=== PATIENT | male | born 1955 | race Caucasian/White ===

== ENCOUNTER 2020-10-19 11:48 | Inpatient (IN) | payer BC, OTHER ==
--- OUTSIDE RECORDS SUMMARY | 2020-10-19 11:54 | XMS REPORT | Continuity of Care Document ---
:1955 Author Organization [facility] t Address [address] [place] [address] [place] [address] Care Team Providers Name Role Phone DR IESHA Attending Clinician Unavailable DR IESHA Admitting Clinician Unavailable Problems This patient has no known problems. Allergies, Adverse Reactions, Alerts This patient has no known allergies or adverse reactions. Medications This patient has no known medications. Procedures This patient has no known procedures. Encounters Start End Encounter Admission Attending Care Care Encounter Source Date/Time Date/Time Type Type Clinicians Facility Department ID 2020-09-28 2020-10-11 Inpatient C [facility] TELE [id number] [id number] [facility] 18:08:00 19:01:00 [facility] Results Test Description Test Time Test Comments Results Result Comments Source STOOL CULTURE (GI) 2020-10-12 08:41:00 Test Item Value Reference Range Interpretation Comme nts Culture Observations (test code = COB1) NO NORMAL ENTERIC DANIEL Isolate 1 (test code = ISO1) Bella albicans A XR CHEST 1 VIEW PORTABLE *WW*2020-10-11 18:18:09 [facility] 1955 Sex: MExam: AP chestLocation: H 12History: Pleural effusionComparison: 10/03/2020.Findings:A right arm PICC line in place, the tip is in the right atrium. Infiltration is seen in the right upper and right lowerlung along with a moderate-sized right pleural effusion. Some atelectasis is present in the left lung base. The pulmonary vasculature is normal. The heart size is enlarged. Atherosclerosis involves theaorta. The mediastinal silhouette is unremarkable. The bony thorax is intact with degenerative changes noted.Impression:Moderate right pleural effusion and multifocal right pneumonia.Electronically signed by: Jim Yanes MD 10/11/2020 6:18 PM CDT WITH MORPHOLOGY *WW*2020-10-11 06:33:00 Test Item Value Reference Range Interpretation Comments WBC (test code = WBC) 11.6 10\S\3/uL 4.5-11.0 H RBC (test code = RBC) 3.12 10\S\6/uL 4.20-5.60 L HGB (test code = HBG) 8.4 g/dL 14.0-18.0 L HCT (test code = HCT) 27.0 % 35.0-46.0 L MCV (test code = MCV) 86.5 fL 80.0-94.0 MCH (test code = MCH) 26.9 pg 27.0-31.0 L MCHC (test code = MCHC) 31.1 g/dL 32.0-36.0 L RDW (test code = RDW) 27.3 % 11.5-14.5 H PLT (test code = PLT) 67 10\S\3/uL 130-400 L MPV (test code = MPV) 10.0 fL 9.4-12.4 NEUTROP # (test code = NE#) 10.5 10\S\3/uL 2.0-8.0 H LYMPH # (test code = LY#) 0.2 10\S\3/uL 1.2-4.0 L MONOCYTE # (test code = 0.8 10\S\3/uL 0.0-1.1 MO#) EOSINOPH # (test code = 0.0 10\S\3/uL 0.0-0.7 EO#) BASOPHIL # (test code = 0.0 10\S\3/uL 0.0-0.3 BA#) IG # (test code = IG#) 0.06 10\S\3/uL 0.00-0.06 NRBC # (test code = NRBC#) 0.00 10\S\3/uL 0.00-0.01 NEUTROPH % (test code = 90.7 % 35.0-73.0 H NE%) LYMPH % (test code = LY%) 1.9 % 20.0-55.0 L MONO % (test code = MO%) 6.8 % 2.5-10.0 EOSINOPH % (test code = 0.0 % 0.0-5.0 EO%) BASOPHIL % (test code = 0.1 % 0.0-2.0 BA%) IG % (test code = IG%) 0.5 % 0.0-0.8 NRBC% (test code = NRBC%) 0.0 % 0.0-0.2 PLT EST (test code = DECREASED ADEQUATE A PLTEST) PLT MORPH (test code = NORMAL (1.5-3 um) NORMAL PLTMOR) ANISO (test code = ANISO) 4+ NONE A POIK (test code = POIK) 1+ NONE A TARGET (test code = TARG) 1+ NONE A OVALOCYTES (test code = 1+ NONE A OVA) TEAR DROP (test code = TD) 1+ NONE A COMPREHENSIVE METABOLIC ELLISON *WW*2020-10-11 04:57:00 Test Item Value Reference Range Interpretation Comments GLUCOSE (test code 124 mg/dL 75-100 H = 06D) SODIUM (test code 140 mmol/L 136-145 = 01A) POTASSIUM (test 3.9 mmol/L 3.6-5.1 code = 01B) CHLORIDE (test 111 mmol/L 98-107 H code = 04A) CO2 (test code = 20 mmol/L 22-32 L 02A) ANION GAP (test 12.9 mmol/L code = ANG) BUN (test code = 79 mg/dL 7-18 H 05D) CREATININE (test 1.5 mg/dL 0.7-1.3 H code = 03E) GFR (test code = 49 See_Comment L [Automated GFR) mL/min/1.73m\S\2 message] Th e system which generated this result transmit kaleb reference range : >=90. The reference range was not used to interpret this result as normal/abnormal . GFR 57 See_Comment L [Automated CENTRAL AFRICAN (test mL/min/1.73m\S\2 message] The code = GFRAA) system which generated this result transmit kaleb reference range : >=90. The reference range was not used to interpret this result as normal/abnormal . EGFR (test code = eGFR BY EGFR) CKD-EPI CALCULATION IS NOT RECOMMENDED FOR PATIENTS UNDER 18 YEARS OF AGE. BUN/CREA (test 54 12-20 H code = BCR) CALCIUM (test code 8.8 mg/dL 8.3-9.5 = 09D) BILI TOTAL (test 1.9 mg/dL 0.2-1.0 H code = 11A) PROTEIN (test code 7.0 g/dL 6.4-8.2 = 07D) ALBUMIN (test code 2.5 g/dL 3.5-4.8 L = 08D) GLOBULIN (test 4.5 g/dL 1.5-3.8 H code = GLB) ALB/GLOB (test 0.6 1.0-2.6 L code = AGRR) ALK PHOS (test 95 IU/L 42-121 code = 35A) AST (test code = 21 IU/L See_Comment [Automated 30A) message] The system which generated this result transmit kaleb reference range : <=42. The reference range was not used to interpret this result as normal/abnormal . ALT (test code = 16 IU/L See_Comment [Automated 31A) message] The system which generated this result transmit kaleb reference range : <=78. The reference range was not used to interpret this result as normal/abnormal . CLOSTRIDIUM DIFFICILE [id number] 11:44:00 Test Item Value Reference Range Interpretation Comments Direct Exam (test NO CLOSTRIDIUM DIFFICILE code = DE1) TOXIN A/B DETECTED CBC WITH MORPHOLOGY *WW*2020-10-10 06:01:00 Test Item Value Reference Range Interpretation Comments WBC (test code = WBC) 12.5 10\S\3/uL 4.5-11.0 H RBC (test code = RBC) 3.25 10\S\6/uL 4.20-5.60 L HGB (test code = HBG) 8.4 g/dL 14.0-18.0 L HCT (test code = HCT) 27.4 % 35.0-46.0 L MCV (test code = MCV) 84.3 fL 80.0-94.0 MCH (test code = MCH) 25.8 pg 27.0-31.0 L MCHC (test code = MCHC) 30.7 g/dL 32.0-36.0 L RDW (test code = RDW) 25.9 % 11.5-14.5 H PLT (test code = PLT) 82 10\S\3/uL 130-400 L MPV (test code = MPV) 10.5 fL 9.4-12.4 NEUTROP # (test code = NE#) 11.4 10\S\3/uL 2.0-8.0 H LYMPH # (test code = LY#) 0.3 10\S\3/uL 1.2-4.0 L MONOCYTE # (test code = 0.8 10\S\3/uL 0.0-1.1 MO#) EOSINOPH # (test code = 0.0 10\S\3/uL 0.0-0.7 EO#) BASOPHIL # (test code = 0.0 10\S\3/uL 0.0-0.3 BA#) IG # (test code = IG#) 0.07 10\S\3/uL 0.00-0.06 H NRBC # (test code = NRBC#) 0.00 10\S\3/uL 0.00-0.01 NEUTROPH % (test code = 91.1 % 35.0-73.0 H NE%) LYMPH % (test code = LY%) 2.2 % 20.0-55.0 L MONO % (test code = MO%) 6.1 % 2.5-10.0 EOSINOPH % (test code = 0.0 % 0.0-5.0 EO%) BASOPHIL % (test code = 0.0 % 0.0-2.0 BA%) IG % (test code = IG%) 0.6 % 0.0-0.8 NRBC% (test code = NRBC%) 0.0 % 0.0-0.2 PLT EST (test code = DECREASED ADEQUATE A PLTEST) PLT MORPH (test code = NORMAL (1.5-3 um) NORMAL PLTMOR) ANISO (test code = ANISO) 4+ NONE A HYPOCHROM (test code = 1+ NONE A HYPOC) TARGET (test code = TARG) 2+ NONE A OVALOCYTES (test code = 1+ NONE A OVA) TEAR DROP (test code = TD) 1+ NONE A COMPREHENSIVE METABOLIC ELLISON *WW*2020-10-10 04:58:00 Test Item Value Reference Range Interpretation Comments GLUCOSE (test code 108 mg/dL 75-100 H = 06D) SODIUM (test code 137 mmol/L 136-145 = 01A) POTASSIUM (test 3.7 mmol/L 3.6-5.1 code = 01B) CHLORIDE (test 108 mmol/L 98-107 H code = 04A) CO2 (test code = 20 mmol/L 22-32 L 02A) ANION GAP (test 12.7 mmol/L code = ANG) BUN (test code = 80 mg/dL 7-18 H 05D) CREATININE (test 1.6 mg/dL 0.7-1.3 H code = 03E) GFR (test code = 46 See_Comment L [Automated GFR) mL/min/1.73m\S\2 message] Th e system which generated this result transmit kaleb reference range : >=90. The reference range was not used to interpret this result as normal/abnormal . GFR 53 See_Comment L [Automated CENTRAL AFRICAN (test mL/min/1.73m\S\2 message] The code = GFRAA) system which generated this result transmit kaleb reference range : >=90. The reference range was not used to interpret this result as normal/abnormal . EGFR (test code = eGFR BY EGFR) CKD-EPI CALCULATION IS NOT RECOMMENDED FOR PATIENTS UNDER 18 YEARS OF AGE. BUN/CREA (test 51 12-20 H code = BCR) CALCIUM (test code 8.9 mg/dL 8.3-9.5 = 09D) BILI TOTAL (test 2.2 mg/dL 0.2-1.0 H code = 11A) PROTEIN (test code 7.2 g/dL 6.4-8.2 = 07D) ALBUMIN (test code 2.7 g/dL 3.5-4.8 L = 08D) GLOBULIN (test 4.5 g/dL 1.5-3.8 H code = GLB) ALB/GLOB (test 0.6 1.0-2.6 L code = AGRR) ALK PHOS (test 103 IU/L 42-121 code = 35A) AST (test code = 25 IU/L See_Comment [Automated 30A) message] The system which generated this result transmit kaleb reference range : <=42. The reference range was not used to interpret this result as normal/abnormal . ALT (test code = 16 IU/L See_Comment [Automated 31A) message] The system which generated this result transmit kaleb reference range : <=78. The reference range was not used to interpret this result as normal/abnormal . CBC WITH MORPHOLOGY *WW*2020-10-09 08:58:00 Test Item Value Reference Range Interpretation Comments WBC (test code = WBC) 18.1 10\S\3/uL 4.5-11.0 H RBC (test code = RBC) 3.26 10\S\6/uL 4.20-5.60 L HGB (test code = HBG) 8.6 g/dL 14.0-18.0 L HCT (test code = HCT) 26.9 % 35.0-46.0 L MCV (test code = MCV) 82.5 fL 80.0-94.0 MCH (test code = MCH) 26.4 pg 27.0-31.0 L MCHC (test code = MCHC) 32.0 g/dL 32.0-36.0 RDW (test code = RDW) 24.3 % 11.5-14.5 H PLT (test code = PLT) 108 10\S\3/uL 130-400 L MPV (test code = MPV) 10.5 fL 9.4-12.4 NEUTROP # (test code = NE#) 16.4 10\S\3/uL 2.0-8.0 H LYMPH # (test code = LY#) 0.4 10\S\3/uL 1.2-4.0 L MONOCYTE # (test code = 1.2 10\S\3/uL 0.0-1.1 H MO#) EOSINOPH # (test code = 0.0 10\S\3/uL 0.0-0.7 EO#) BASOPHIL # (test code = 0.0 10\S\3/uL 0.0-0.3 BA#) IG # (test code = IG#) 0.11 10\S\3/uL 0.00-0.06 H NRBC # (test code = NRBC#) 0.00 10\S\3/uL 0.00-0.01 NEUTROPH % (test code = 90.4 % 35.0-73.0 H NE%) LYMPH % (test code = LY%) 2.1 % 20.0-55.0 L MONO % (test code = MO%) 6.7 % 2.5-10.0 EOSINOPH % (test code = 0.1 % 0.0-5.0 EO%) BASOPHIL % (test code = 0.1 % 0.0-2.0 BA%) IG % (test code = IG%) 0.6 % 0.0-0.8 NRBC% (test code = NRBC%) 0.0 % 0.0-0.2 PLT EST (test code = DECREASED ADEQUATE A PLTEST) PLT MORPH (test code = NORMAL (1.5-3 um) NORMAL PLTMOR) ANISO (test code = ANISO) 1+ NONE A POIK (test code = POIK) 1+ NONE A POLYCHROM (test code = 1+ NONE A POLY) TARGET (test code = TARG) 2+ NONE A COMPREHENSIVE METABOLIC ELLISON *WW*2020-10-09 05:18:00 Test Item Value Reference Range Interpretation Comments GLUCOSE (test code 104 mg/dL 75-100 H = 06D) SODIUM (test code 138 mmol/L 136-145 = 01A) POTASSIUM (test 3.8 mmol/L 3.6-5.1 code = 01B) CHLORIDE (test 108 mmol/L 98-107 H code = 04A) CO2 (test code = 21 mmol/L 22-32 L 02A) ANION GAP (test 12.8 mmol/L code = ANG) BUN (test code = 79 mg/dL 7-18 H 05D) CREATININE (test 1.7 mg/dL 0.7-1.3 H code = 03E) GFR (test code = 43 See_Comment L [Automated GFR) mL/min/1.73m\S\2 message] Th e system which generated this result transmit kaleb reference range : >=90. The reference range was not used to interpret this result as normal/abnormal . GFR 50 See_Comment L [Automated CENTRAL AFRICAN (test mL/min/1.73m\S\2 message] The code = GFRAA) system which generated this result transmit kaleb reference range : >=90. The reference range was not used to interpret this result as normal/abnormal . EGFR (test code = eGFR BY EGFR) CKD-EPI CALCULATION IS NOT RECOMMENDED FOR PATIENTS UNDER 18 YEARS OF AGE. BUN/CREA (test 48 12-20 H code = BCR) CALCIUM (test code 9.0 mg/dL 8.3-9.5 = 09D) BILI TOTAL (test 2.0 mg/dL 0.2-1.0 H code = 11A) PROTEIN (test code 6.8 g/dL 6.4-8.2 = 07D) ALBUMIN (test code 2.4 g/dL 3.5-4.8 L = 08D) GLOBULIN (test 4.4 g/dL 1.5-3.8 H code = GLB) ALB/GLOB (test 0.6 1.0-2.6 L code = AGRR) ALK PHOS (test 90 IU/L 42-121 code = 35A) AST (test code = 16 IU/L See_Comment [Automated 30A) message] The system which generated this result transmit kaleb reference range : <=42. The reference range was not used to interpret this result as normal/abnormal . ALT (test code = 13 IU/L See_Comment [Automated 31A) message] The system which generated this result transmit kaleb reference range : <=78. The reference range was not used to interpret this result as normal/abnormal . OCCULT [id number] 17:33:00 Test Item Value Reference Range Interpretation Comments Direct Exam (test code NEGATIVE FOR OCCULT = DE3) BLOOD BODY FLUID & GRAM STAIN [id number] 09:52:00 Test Item Value Reference Range Interpretation Comments Culture Observations NO GROWTH AFTER 5 (test code = COB1) DAYS Direct Exam (test code = MODERATE WHITE BLOOD DE1) CELLS SEEN Direct Exam (test code = NO ORGANISMS SEEN DE2) CBC WITH MORPHOLOGY *WW*2020-10-08 06:57:00 Test Item Value Reference Range Interpretation Comments WBC (test code = WBC) 19.2 10\S\3/uL 4.5-11.0 H RBC (test code = RBC) 3.13 10\S\6/uL 4.20-5.60 L HGB (test code = HBG) 7.9 g/dL 14.0-18.0 L HCT (test code = HCT) 25.3 % 35.0-46.0 L MCV (test code = MCV) 80.8 fL 80.0-94.0 MCH (test code = MCH) 25.2 pg 27.0-31.0 L MCHC (test code = MCHC) 31.2 g/dL 32.0-36.0 L RDW (test code = RDW) 23.4 % 11.5-14.5 H PLT (test code = PLT) 124 10\S\3/uL 130-400 L MPV (test code = MPV) 10.8 fL 9.4-12.4 NEUTROP # (test code = NE#) 17.1 10\S\3/uL 2.0-8.0 H LYMPH # (test code = LY#) 0.5 10\S\3/uL 1.2-4.0 L MONOCYTE # (test code = 1.4 10\S\3/uL 0.0-1.1 H MO#) EOSINOPH # (test code = 0.0 10\S\3/uL 0.0-0.7 EO#) BASOPHIL # (test code = 0.0 10\S\3/uL 0.0-0.3 BA#) IG # (test code = IG#) 0.14 10\S\3/uL 0.00-0.06 H NRBC # (test code = NRBC#) 0.00 10\S\3/uL 0.00-0.01 NEUTROPH % (test code = 89.0 % 35.0-73.0 H NE%) LYMPH % (test code = LY%) 2.7 % 20.0-55.0 L MONO % (test code = MO%) 7.5 % 2.5-10.0 EOSINOPH % (test code = 0.0 % 0.0-5.0 EO%) BASOPHIL % (test code = 0.1 % 0.0-2.0 BA%) IG % (test code = IG%) 0.7 % 0.0-0.8 NRBC% (test code = NRBC%) 0.0 % 0.0-0.2 PLT EST (test code = DECREASED ADEQUATE A PLTEST) PLT MORPH (test code = NORMAL (1.5-3 um) NORMAL PLTMOR) ANISO (test code = ANISO) 4+ NONE A HYPOCHROM (test code = 1+ NONE A HYPOC) TARGET (test code = TARG) 1+ NONE A OVALOCYTES (test code = 1+ NONE A OVA) TEAR DROP (test code = TD) 1+ NONE A COMPREHENSIVE METABOLIC ELLISON *WW*2020-10-08 05:55:00 Test Item Value Reference Range Interpretation Comments GLUCOSE (test code 112 mg/dL 75-100 H = 06D) SODIUM (test code 135 mmol/L 136-145 L = 01A) POTASSIUM (test 3.7 mmol/L 3.6-5.1 code = 01B) CHLORIDE (test 107 mmol/L 98-107 code = 04A) CO2 (test code = 21 mmol/L 22-32 L 02A) ANION GAP (test 10.7 mmol/L code = ANG) BUN (test code = 86 mg/dL 7-18 H 05D) CREATININE (test 1.8 mg/dL 0.7-1.3 H code = 03E) GFR (test code = 39 See_Comment L [Automated GFR) mL/min/1.73m\S\2 message] Th e system which generated this result transmit kaleb reference range : >=90. The reference range was not used to interpret this result as normal/abnormal . GFR 45 See_Comment L [Automated CENTRAL AFRICAN (test mL/min/1.73m\S\2 message] The code = GFRAA) system which generated this result transmit kaleb reference range : >=90. The reference range was not used to interpret this result as normal/abnormal . EGFR (test code = eGFR BY EGFR) CKD-EPI CALCULATION IS NOT RECOMMENDED FOR PATIENTS UNDER 18 YEARS OF AGE. BUN/CREA (test 48 12-20 H code = BCR) CALCIUM (test code 8.9 mg/dL 8.3-9.5 = 09D) BILI TOTAL (test 2.0 mg/dL 0.2-1.0 H code = 11A) PROTEIN (test code 6.8 g/dL 6.4-8.2 = 07D) ALBUMIN (test code 2.4 g/dL 3.5-4.8 L = 08D) GLOBULIN (test 4.4 g/dL 1.5-3.8 H code = GLB) ALB/GLOB (test 0.5 1.0-2.6 L code = AGRR) ALK PHOS (test 89 IU/L 42-121 code = 35A) AST (test code = 14 IU/L See_Comment [Automated 30A) message] The system which generated this result transmit kaleb reference range : <=42. The reference range was not used to interpret this result as normal/abnormal . ALT (test code = 12 IU/L See_Comment [Automated 31A) message] The system which generated this result transmit kaleb reference range : <=78. The reference range was not used to interpret this result as normal/abnormal . CBC WITH MANUAL DIFF *WW*2020-10-07 07:55:00 Test Item Value Reference Range Interpretation Comments WBC (test code = 20.8 10\S\3/uL 4.5-11.0 H WBC) RBC (test code = 2.88 10\S\6/uL 4.20-5.60 L RBC) HGB (test code = 7.1 g/dL 14.0-18.0 LL HBG) HCT (test code = 22.6 % 35.0-46.0 LL HCT) MCV (test code = 78.5 fL 80.0-94.0 L MCV) MCH (test code = 24.7 pg 27.0-31.0 L MCH) MCHC (test code = 31.4 g/dL 32.0-36.0 L MCHC) RDW (test code = 23.0 % 11.5-14.5 H RDW) PLT (test code = 138 10\S\3/uL 130-400 PLT) MPV (test code = 10.6 fL 9.4-12.4 MPV) NEUTROP # (test 17.9 10\S\3/uL 2.0-8.0 H code = NE#) LYMPH # (test code 0.6 10\S\3/uL 1.2-4.0 L = LY#) MONOCYTE # (test 2.1 10\S\3/uL 0.0-1.1 H code = MO#) EOSINOPH # (test 0.0 10\S\3/uL 0.0-0.7 code = EO#) BASOPHIL # (test 0.0 10\S\3/uL 0.0-0.3 code = BA#) IG # (test code = 0.20 10\S\3/uL 0.00-0.06 H IG#) NRBC # (test code = 0.00 10\S\3/uL 0.00-0.01 NRBC#) NEUTROPH % (test 86.0 % 35.0-73.0 H code = NE%) LYMPH % (test code 3.0 % 20.0-55.0 L = LY%) MONO % (test code = 9.9 % 2.5-10.0 MO%) EOSINOPH % (test 0.0 % 0.0-5.0 code = EO%) BASOPHIL % (test 0.1 % 0.0-2.0 code = BA%) IG % (test code = 1.0 % 0.0-0.8 H IG%) NRBC% (test code = 0.0 % 0.0-0.2 NRBC%) MAN DIFF (test code MANUAL = HMDIFF) DIFFERENTIAL SEG (test code = 85 % 42-75 H SEG) BAND (test code = 1 % 0-8 BAND) LYMPH (test code = 4 % 20-51 L LYMPH) ATYP LYMP (test 1 % See_Comment [Automated code = ATYL) message] The sy stem which generated this result transmitted reference range : <=5. The refere nce range was not u sed to interpret th is result as normal/abnormal . MONO (test code = 9 % 3-11 MONO) EOS (test code = 0 % See_Comment [Automated EOS) message] The sy stem which generated this result transmitted reference range : <=10. The refer ence range was not u sed to interpret th is result as normal/abnormal . BASO (test code = 0 % 0-2 BASO) RBC MORPH (test ABNORMAL NORMAL A code = RBCMORN) PLT EST (test code ADEQUATE ADEQUATE = PLTEST) PLT MORPH (test NORMAL (1.5-3 NORMAL code = PLTMOR) um) ANISO (test code = 2+ NONE A ANISO) POIK (test code = 1+ NONE A POIK) HYPOCHROM (test 1+ NONE A code = HYPOC) POLYCHROM (test 1+ NONE A code = POLY) TARGET (test code = 1+ NONE A TARG) OVALOCYTES (test 1+ NONE A code = OVA) TEAR DROP (test 1+ NONE A code = TD) COMPREHENSIVE METABOLIC ELLISON *WW*2020-10-07 03:25:00 Test Item Value Reference Range Interpretation Comments GLUCOSE (test code 130 mg/dL 75-100 H = 06D) SODIUM (test code 135 mmol/L 136-145 L = 01A) POTASSIUM (test 4.0 mmol/L 3.6-5.1 code = 01B) CHLORIDE (test 105 mmol/L 98-107 code = 04A) CO2 (test code = 21 mmol/L 22-32 L 02A) ANION GAP (test 13.0 mmol/L code = ANG) BUN (test code = 91 mg/dL 7-18 H 05D) CREATININE (test 1.9 mg/dL 0.7-1.3 H code = 03E) GFR (test code = 36 See_Comment L [Automated GFR) mL/min/1.73m\S\2 message] Th e system which generated this result transmit kaleb reference range : >=90. The reference range was not used to interpret this result as normal/abnormal . GFR 42 See_Comment L [Automated CENTRAL AFR[place] (test mL/min/1.73m\S\2 message] The code = GFRAA) system which generated this result transmit kaleb reference range : >=90. The reference range was not used to interpret this result as normal/abnormal . EGFR (test code = eGFR BY EGFR) CKD-EPI CALCULATION IS NOT RECOMMENDED FOR PATIENTS UNDER 18 YEARS OF AGE. BUN/CREA (test 48 12-20 H code = BCR) CALCIUM (test code 8.7 mg/dL 8.3-9.5 = 09D) BILI TOTAL (test 1.2 mg/dL 0.2-1.0 H code = 11A) PROTEIN (test code 6.8 g/dL 6.4-8.2 = 07D) ALBUMIN (test code 2.3 g/dL 3.5-4.8 L = 08D) GLOBULIN (test 4.5 g/dL 1.5-3.8 H code = GLB) ALB/GLOB (test 0.5 1.0-2.6 L code = AGRR) ALK PHOS (test 83 IU/L 42-121 code = 35A) AST (test code = 14 IU/L See_Comment [Automated 30A) message] The system which generated this result transmit kaleb reference range : <=42. The reference range was not used to interpret this result as normal/abnormal . ALT (test code = 11 IU/L See_Comment [Automated 31A) message] The system which generated this result transmit kaleb reference range : <=78. The reference range was not used to interpret this result as normal/abnormal . CBC WITH MANUAL DIFF *WW*2020-10-06 05:52:00 Test Item Value Reference Range Interpretation Comments WBC (test code = 23.0 10\S\3/uL 4.5-11.0 H WBC) RBC (test code = 3.35 10\S\6/uL 4.20-5.60 L RBC) HGB (test code = 7.9 g/dL 14.0-18.0 L HBG) HCT (test code = 25.7 % 35.0-46.0 L HCT) MCV (test code = 76.7 fL 80.0-94.0 L MCV) MCH (test code = 23.6 pg 27.0-31.0 L MCH) MCHC (test code = 30.7 g/dL 32.0-36.0 L MCHC) RDW (test code = 22.5 % 11.5-14.5 H RDW) PLT (test code = 182 10\S\3/uL 130-400 PLT) MPV (test code = 10.8 fL 9.4-12.4 MPV) NEUTROP # (test 19.5 10\S\3/uL 2.0-8.0 H code = NE#) LYMPH # (test code 0.9 10\S\3/uL 1.2-4.0 L = LY#) MONOCYTE # (test 2.2 10\S\3/uL 0.0-1.1 H code = MO#) EOSINOPH # (test 0.0 10\S\3/uL 0.0-0.7 code = EO#) BASOPHIL # (test 0.0 10\S\3/uL 0.0-0.3 code = BA#) IG # (test code = 0.44 10\S\3/uL 0.00-0.06 H IG#) NRBC # (test code = 0.02 10\S\3/uL 0.00-0.01 H NRBC#) NEUTROPH % (test 84.8 % 35.0-73.0 H code = NE%) LYMPH % (test code 3.7 % 20.0-55.0 L = LY%) MONO % (test code = 9.5 % 2.5-10.0 MO%) EOSINOPH % (test 0.0 % 0.0-5.0 code = EO%) BASOPHIL % (test 0.1 % 0.0-2.0 code = BA%) IG % (test code = 1.9 % 0.0-0.8 H IG%) NRBC% (test code = 0.1 % 0.0-0.2 NRBC%) MAN DIFF (test code MANUAL = HMDIFF) DIFFERENTIAL SEG (test code = 84 % 42-75 H SEG) BAND (test code = 1 % 0-8 BAND) LYMPH (test code = 9 % 20-51 L LYMPH) MONO (test code = 6 % 3-11 MONO) EOS (test code = 0 % See_Comment [Automated EOS) message] The sy stem which generated this result transmitted reference range : <=10. The refer ence range was not u sed to interpret th is result as normal/abnormal . BASO (test code = 0 % 0-2 BASO) RBC MORPH (test ABNORMAL NORMAL A code = RBCMORN) PLT EST (test code ADEQUATE ADEQUATE = PLTEST) PLT MORPH (test NORMAL (1.5-3 NORMAL code = PLTMOR) um) ANISO (test code = 4+ NONE A ANISO) HYPOCHROM (test 2+ NONE A code = HYPOC) MICROCYTIC (test 1+ NONE A code = MICRO) POLYCHROM (test 1+ NONE A code = POLY) TARGET (test code = 1+ NONE A TARG) OVALOCYTES (test 1+ NONE A code = OVA) TEAR DROP (test 2+ NONE A code = TD) COMPREHENSIVE METABOLIC ELLISON *WW*2020-10-06 04:34:00 Test Item Value Reference Range Interpretation Comments GLUCOSE (test code 108 mg/dL 75-100 H = 06D) SODIUM (test code 132 mmol/L 136-145 L = 01A) POTASSIUM (test 4.1 mmol/L 3.6-5.1 code = 01B) CHLORIDE (test 102 mmol/L 98-107 code = 04A) CO2 (test code = 22 mmol/L 22-32 02A) ANION GAP (test 12.1 mmol/L code = ANG) BUN (test code = 93 mg/dL 7-18 H 05D) CREATININE (test 1.9 mg/dL 0.7-1.3 H code = 03E) GFR (test code = 36 See_Comment L [Automated GFR) mL/min/1.73m\S\2 message] Th e system which generated this result transmit kaleb reference range : >=90. The reference range was not used to interpret this result as normal/abnormal . GFR 42 See_Comment L [Automated [employer] (test mL/min/1.73m\S\2 message] The code = GFRAA) system which generated this result transmit kaleb reference range : >=90. The reference range was not used to interpret this result as normal/abnormal . EGFR (test code = eGFR BY EGFR) CKD-EPI CALCULATION IS NOT RECOMMENDED FOR PATIENTS UNDER 18 YEARS OF AGE. BUN/CREA (test 48 12-20 H code = BCR) CALCIUM (test code 8.4 mg/dL 8.3-9.5 = 09D) BILI TOTAL (test 1.6 mg/dL 0.2-1.0 H code = 11A) PROTEIN (test code 6.9 g/dL 6.4-8.2 = 07D) ALBUMIN (test code 2.3 g/dL 3.5-4.8 L = 08D) GLOBULIN (test 4.5 g/dL 1.5-3.8 H code = GLB) ALB/GLOB (test 0.5 1.0-2.6 L code = AGRR) ALK PHOS (test 82 IU/L 42-121 code = 35A) AST (test code = 10 IU/L See_Comment [Automated 30A) message] The system which generated this result transmit kaleb reference range : <=42. The reference range was not used to interpret this result as normal/abnormal . ALT (test code = 9 IU/L See_Comment [Automated 31A) message] The system which generated this result transmit kaleb reference range : <=78. The reference range was not used to interpret this result as normal/abnormal . CBC WITH MANUAL DIFF *WW*2020-10-05 07:56:00 Test Item Value Reference Range Interpretation Comments WBC (test code = 24.1 10\S\3/uL 4.5-11.0 H WBC) RBC (test code = 3.43 10\S\6/uL 4.20-5.60 L RBC) HGB (test code = 8.1 g/dL 14.0-18.0 L HBG) HCT (test code = 26.0 % 35.0-46.0 L HCT) MCV (test code = 75.8 fL 80.0-94.0 L MCV) MCH (test code = 23.6 pg 27.0-31.0 L MCH) MCHC (test code = 31.2 g/dL 32.0-36.0 L MCHC) RDW (test code = 21.9 % 11.5-14.5 H RDW) PLT (test code = 187 10\S\3/uL 130-400 PLT) MPV (test code = 10.7 fL 9.4-12.4 MPV) NEUTROP # (test 20.9 10\S\3/uL 2.0-8.0 H code = NE#) LYMPH # (test code 0.6 10\S\3/uL 1.2-4.0 L = LY#) MONOCYTE # (test 2.1 10\S\3/uL 0.0-1.1 H code = MO#) EOSINOPH # (test 0.0 10\S\3/uL 0.0-0.7 code = EO#) BASOPHIL # (test 0.0 10\S\3/uL 0.0-0.3 code = BA#) IG # (test code = 0.36 10\S\3/uL 0.00-0.06 H IG#) NRBC # (test code = 0.00 10\S\3/uL 0.00-0.01 NRBC#) NEUTROPH % (test 86.8 % 35.0-73.0 H code = NE%) LYMPH % (test code 2.4 % 20.0-55.0 L = LY%) MONO % (test code = 8.9 % 2.5-10.0 MO%) EOSINOPH % (test 0.2 % 0.0-5.0 code = EO%) BASOPHIL % (test 0.2 % 0.0-2.0 code = BA%) IG % (test code = 1.5 % 0.0-0.8 H IG%) NRBC% (test code = 0.0 % 0.0-0.2 NRBC%) MAN DIFF (test code MANUAL = HMDIFF) DIFFERENTIAL SEG (test code = 89 % 42-75 H SEG) BAND (test code = 0 % 0-8 BAND) LYMPH (test code = 9 % 20-51 L LYMPH) MONO (test code = 2 % 3-11 L MONO) EOS (test code = 0 % See_Comment [Automated EOS) message] The sy stem which generated this result transmitted reference range : <=10. The refer ence range was not u sed to interpret th is result as normal/abnormal . BASO (test code = 0 % 0-2 BASO) RBC MORPH (test ABNORMAL NORMAL A code = RBCMORN) PLT EST (test code ADEQUATE ADEQUATE = PLTEST) PLT MORPH (test NORMAL (1.5-3 NORMAL code = PLTMOR) um) ANISO (test code = 1+ NONE A ANISO) HYPOCHROM (test 1+ NONE A code = HYPOC) MICROCYTIC (test 1+ NONE A code = MICRO) COMPREHENSIVE METABOLIC ELLISON *WW*2020-10-05 05:25:00 Test Item Value Reference Range Interpretation Comments GLUCOSE (test code 132 mg/dL 75-100 H = 06D) SODIUM (test code 133 mmol/L 136-145 L = 01A) POTASSIUM (test 3.9 mmol/L 3.6-5.1 code = 01B) CHLORIDE (test 103 mmol/L 98-107 code = 04A) CO2 (test code = 22 mmol/L 22-32 02A) ANION GAP (test 11.9 mmol/L code = ANG) BUN (test code = 83 mg/dL 7-18 H 05D) CREATININE (test 2.1 mg/dL 0.7-1.3 H code = 03E) GFR (test code = 33 See_Comment L [Automated GFR) mL/min/1.73m\S\2 message] Th e system which generated this result transmit kaleb reference range : >=90. The reference range was not used to interpret this result as normal/abnormal . GFR 38 See_Comment L [Automated CENTRAL AFRICAN (test mL/min/1.73m\S\2 message] The code = GFRAA) system which generated this result transmit kaleb reference range : >=90. The reference range was not used to interpret this result as normal/abnormal . EGFR (test code = eGFR BY EGFR) CKD-EPI CALCULATION IS NOT RECOMMENDED FOR PATIENTS UNDER 18 YEARS OF AGE. BUN/CREA (test 40 12-20 H code = BCR) CALCIUM (test code 8.2 mg/dL 8.3-9.5 L = 09D) BILI TOTAL (test 1.4 mg/dL 0.2-1.0 H code = 11A) PROTEIN (test code 6.8 g/dL 6.4-8.2 = 07D) ALBUMIN (test code 2.3 g/dL 3.5-4.8 L = 08D) GLOBULIN (test 4.5 g/dL 1.5-3.8 H code = GLB) ALB/GLOB (test 0.5 1.0-2.6 L code = AGRR) ALK PHOS (test 81 IU/L 42-121 code = 35A) AST (test code = 6 IU/L See_Comment [Automated 30A) message] The system which generated this result transmit kaleb reference range : <=42. The reference range was not used to interpret this result as normal/abnormal . ALT (test code = 8 IU/L See_Comment [Automated 31A) message] The system which generated this result transmit kaleb reference range : <=78. The reference range was not used to interpret this result as normal/abnormal . BLOOD [id number] 10:02:00 Test Item Value Reference Range Interpretation Comments Culture Observations (test NO GROWTH AFTER 5 code = COB1) DAYS BLOOD [id number] 10:02:00 Test Item Value Reference Range Interpretation Comments Culture Observations (test NO GROWTH AFTER 5 code = COB1) DAYS CBC WITH MORPHOLOGY *WW*2020-10-04 05:55:00 Test Item Value Reference Range Interpretation Comments WBC (test code = WBC) 19.2 10\S\3/uL 4.5-11.0 H RBC (test code = RBC) 3.71 10\S\6/uL 4.20-5.60 L HGB (test code = HBG) 8.5 g/dL 14.0-18.0 L HCT (test code = HCT) 27.5 % 35.0-46.0 L MCV (test code = MCV) 74.1 fL 80.0-94.0 L MCH (test code = MCH) 22.9 pg 27.0-31.0 L MCHC (test code = MCHC) 30.9 g/dL 32.0-36.0 L RDW (test code = RDW) 21.0 % 11.5-14.5 H PLT (test code = PLT) 155 10\S\3/uL 130-400 MPV (test code = MPV) 10.8 fL 9.4-12.4 NEUTROP # (test code = NE#) 17.3 10\S\3/uL 2.0-8.0 H LYMPH # (test code = LY#) 0.4 10\S\3/uL 1.2-4.0 L MONOCYTE # (test code = 1.2 10\S\3/uL 0.0-1.1 H MO#) EOSINOPH # (test code = 0.0 10\S\3/uL 0.0-0.7 EO#) BASOPHIL # (test code = 0.0 10\S\3/uL 0.0-0.3 BA#) IG # (test code = IG#) 0.27 10\S\3/uL 0.00-0.06 H NRBC # (test code = NRBC#) 0.00 10\S\3/uL 0.00-0.01 NEUTROPH % (test code = 90.3 % 35.0-73.0 H NE%) LYMPH % (test code = LY%) 1.8 % 20.0-55.0 L MONO % (test code = MO%) 6.4 % 2.5-10.0 EOSINOPH % (test code = 0.0 % 0.0-5.0 EO%) BASOPHIL % (test code = 0.1 % 0.0-2.0 BA%) IG % (test code = IG%) 1.4 % 0.0-0.8 H NRBC% (test code = NRBC%) 0.0 % 0.0-0.2 PLT EST (test code = ADEQUATE ADEQUATE PLTEST) PLT MORPH (test code = NORMAL (1.5-3 um) NORMAL PLTMOR) COMPREHENSIVE METABOLIC ELLISON *WW*2020-10-04 04:44:00 Test Item Value Reference Range Interpretation Comments GLUCOSE (test code 135 mg/dL 75-100 H = 06D) SODIUM (test code 133 mmol/L 136-145 L = 01A) POTASSIUM (test 4.0 mmol/L 3.6-5.1 code = 01B) CHLORIDE (test 103 mmol/L 98-107 code = 04A) CO2 (test code = 22 mmol/L 22-32 02A) ANION GAP (test 12.0 mmol/L code = ANG) BUN (test code = 82 mg/dL 7-18 H 05D) CREATININE (test 2.3 mg/dL 0.7-1.3 H code = 03E) GFR (test code = 28 See_Comment L [Automated GFR) mL/min/1.73m\S\2 message] Th e system which generated this result transmit kaleb reference range : >=90. The reference range was not used to interpret this result as normal/abnormal . GFR 33 See_Comment L [Automated CEN[place]AL AFR[place] (test mL/min/1.73m\S\2 message] The code = GFRAA) system which generated this result transmit kaleb reference range : >=90. The reference range was not used to interpret this result as normal/abnormal . EGFR (test code = eGFR BY EGFR) CKD-EPI CALCULATION IS NOT RECOMMENDED FOR PATIENTS UNDER 18 YEARS OF AGE. BUN/CREA (test 35 12-20 H code = BCR) CALCIUM (test code 8.3 mg/dL 8.3-9.5 = 09D) BILI TOTAL (test 1.4 mg/dL 0.2-1.0 H code = 11A) PROTEIN (test code 7.2 g/dL 6.4-8.2 = 07D) ALBUMIN (test code 2.2 g/dL 3.5-4.8 L = 08D) GLOBULIN (test 5.0 g/dL 1.5-3.8 H code = GLB) ALB/GLOB (test 0.4 1.0-2.6 L code = AGRR) ALK PHOS (test 84 IU/L 42-121 code = 35A) AST (test code = 8 IU/L See_Comment [Automated 30A) message] The system which generated this result transmit kaleb reference range : <=42. The reference range was not used to interpret this result as normal/abnormal . ALT (test code = 11 IU/L See_Comment [Automated 31A) message] The system which generated this result transmit kaleb reference range : <=78. The reference range was not used to interpret this result as normal/abnormal . IRON/TIBC/IRON [id number] 22:54:00 Test Item Value Reference Range Interpretation Comments IRON (test code = 46B) 32 ug/dL 65-175 L TIBC (test code = 79B) 280 ug/dL 250-400 FE% SAT (test code = ISAT) 11.4 % 20.0-50.0 L LDH BODY FLUID WW2020-10-03 15:43:00 Test Item Value Reference Range Interpretation Comments NRR (test code = NRR) * NO REFRENCE RANGE AVAILABLE FOR RANDOM SPECIMEN* SOURCE (test code = PLEURAL BFC) LDH BF (test code = 178 U/L LDHF) PROTEIN BODY FLUID 2020-10-03 15:43:00 Test Item Value Reference Range Interpretation Comments PROT BF (test code = 2.6 g/dL PBF) SOURCE (test code = PLEURAL BFC) NRR (test code = NRR) * NO REFRENCE RANGE AVAILABLE FOR RANDOM SPECIMEN* GRAM [id number] 15:04:00 Test Item Value Reference Range Interpretation Comments Direct Exam (test MODERATE WHITE BLOOD code = DE1) CELLS SEEN Direct Exam (test NO ORGANISMS SEEN code = DE2) CELL COUNT & DIFF PLEURAL F 2020-10-03 14:56:00 Test Item Value Reference Range Interpretation Comments FLD_TYPE (test code = THORCENTESIS FLDTYPE) COLOR BF (test code = XANTHACHROMIC COLBF) APPEAR BF (test code CLOUDY = APPBF) WBC BF (test code = 0.452 10\S\3/uL WBCCBF) RBC BF (test code = 0.020 10\S\6/uL RBCCBF) NEUTRO BF (test code 49 % = NEUTBF) LYMPH BF (test code = 43 % LYMPBF) MONO BF (test code = 2 % MONOBF) EOS BF (test code = % EOSBF) BASO BF (test code = % BABF) MESOTHELIA (test code 4 % = MESOBF) MACROPH BF (test code 2 % = MACROBF) PLASMA BF (test code % = PLSMBF) OTHER BF (test code = % OTHBF) COMMENT (test code = CO) RRPF (test code = REFERENCE RANGE PLEURAL RRPF) FLUID COLOR PALE YELLOW/STRAW CLARITY CLEAR WBC <1000/CMM RBC 0/CMM MACROPHAGES &MESOTHELIAL CELLS 70% LYMPHOCYTES <18% NEUTROPHILS <7% CELL COUNT & DIFF PERITON F *WW*2020-10-03 14:53:00 Test Item Value Reference Range Interpretation Comments FLD_TYPE (test code = PERITONEAL FLDTYPE) COLOR BF (test code = SLT XANTHACH COLBF) APPEAR BF (test code = CLEAR APPBF) WBC BF (test code = 0.174 10\S\3/uL WBCCBF) RBC BF (MAN) (test 740 /CUMM code = RBCBF) MN# (test code = MN#) 0.090 10\S\3/uL MN % (test code = MN%) 51.8 % PMN# (test code = 0.084 10\S\3/uL PMN#) PMN % (test code = 48.2 % PMN%) NEUTRO BF (test code = 43 % NEUTBF) LYMPH BF (test code = 29 % LYMPBF) MONO BF (test code = 3 % MONOBF) EOS BF (test code = % EOSBF) BASO BF (test code = % BABF) MESOTHELIA (test code 24 % = MESOBF) MACROPH BF (test code 1 % = MACROBF) PLASMA BF (test code = % PLSMBF) OTHER BF (test code = % OTHBF) COMMENT (test code = CO) RRPRF (test code = REFERENCE RANGE RRPRF) PERITONEAL FLUID -- COLOR PALE YELLOW/STRAW CLARITY CLEAR WBC <100/CMM RBC 0/CMM MACROPHAGES &MESOTHELIAL CELLS >70% LYMPHOCYTES <18% NEUTROPHILS <7% U/S GUIDANCE FOR [id number] 14:19:48 [facility] 1955 Sex: MEXAMINATION: IMAGE GUIDED THORACENTESIS HISTORY: Ascites, abdominal distention, pleural effusion, RAMIRO, sepsis, request is made for patient's first thoracentesis.COMPARISON: None.SEDATION: The patient did not require conscious sedation for the procedure.TECHNIQUE: The risks, benefits and alternatives werediscussed and informed consent was obtained. Prior to beginning the procedure, Humphreys Protocol was performed to confirm the patient's identity and the planned procedure. Maximum sterile barriers including cap, mask, hand hygiene, sterile gloves, sterile gown, large sterile drape and cutaneous antisepsis were used. The patient's right chest was examined with US and free flowing pleural fluid was identified. The skin overlying this area was anesthetized with 1% lidocaine. Using real-time US guidance a 5 Portuguese sheathed needle was advanced into the pleural space. Approximately 800 cc of tahir colorfluid was drained. Samples were sent for analysis, including cytology. At the conclusion of the procedure the catheter was removed and a sterile dressing applied to the site. ESTIMATED BLOOD LOSS: Minimal. CONDITION: Stable.DISCHARGED TO: Recovery. FINDINGS: Ultrasound demonstrated a moderate amount of pleural fluid. IMPRESSION: Successful image guided right diagnostic and therapeutic thoracentesis. PLAN: Post procedure chest radiograph will be obtained.Electronically signed by: Nathaly Ventura 10/03/2020 2:19 PM CDT /S GUIDANCE [id number] 14:08:05 [facility] : 1955 Sex: MEXAMINATION: IMAGE GUIDED PARACENTESIS.HISTORY: Ascites, abdominal distention, pleural effusion, RAMIRO, sepsis, request is made for patient's first paracentesis.COMPARISON: None.SEDATION: The patient did not require conscious sedation for the procedure.TECHNIQUE: The risks, benefits and alternatives were discussed and informed consent was obtained. Prior to beginning the procedure, Humphreys Protocol was performed to confirm the identity and the planned procedure. Maximum sterile barriers including cap,mask, hand hygiene, sterile gloves, sterile gown, large sterile drape and cutaneous antisepsis were used. The patient's abdomen was examined with ultrasound and a suitable pocket of ascitic fluid in the RLQ was identified. The skin overlying this area was anesthetized with 1% lidocaine. Using real-time ultrasound guidance, a 5F sheathed needle was advanced into the ascitic fluid. Approximately 4400 cc of clear yellow fluid was drained.Samples were sent for analysis, including cytology.At the conclusion of the procedure the catheter was removed and a sterile dressing applied to the site. ESTIMATED BLOOD LOSS: Minimal.CONDITION: Stable.DISCHARGED TO: Recovery.FINDINGS: Ultrasound demonstrated a large amount of ascitic fluid. Incidental note is made of cholelithiasis.IMPRESSION: Successful image guided diagnostic and therapeutic paracentesis.Electronically signed by: Nathaly Ventura MD 12:08 PM CDT INSERT PICC W/IMAGING 5YRS & [id number] 13:58:31 [facility] : 1955 Sex: MEXAMINATION: NONTUNNELED CENTRAL VENOUS CATHETER PLACEMENT USING ULTRASOUND AND FLUOROSCOPIC GUIDANCE.HISTORY: Poor venous access, ascites, abdominal distention, pleural effusion, request is made for PICC.COMPARISON: None.SEDATION: The patient did not require conscious sedation for the procedure.RADIATION DOSE: 0.00571 mGy.TECHNIQUE: The risks, benefits and alternatives were discussed and informed consent was obtained. Prior to beginning the procedure, Humphreys Protocol was used to confirm the patient's identity and planned procedure. Maximum sterile barriers including cap, mask, hand hygiene, sterile gloves, sterile gown, large sterile drape and cutaneous antisepsis were used. SITE: The skin over the right basilic vein was sterilely prepped, draped and infiltrated with 1% lidocaine. Prior to the procedure, the target vessel was evaluated by ultrasound. An image of the patent vessel was recorded and saved in PACS. After sterile prep, this vessel was accessed using realtime ultrasound guidance.A guidewire and catheter were then passed centrally using fluoroscopic guidance. The intravascular length from the access site to the right atrium was assessed. After dilating the tract, a PICC was inserted over the guidewire. The catheter was flushed with saline and secured in place. A sterile dressing was applied. ESTIMATED BLOOD LOSS: less than 30 milliliters. DISCHARGED TO: Recovery and then to inpatient unit.CONDITION: Stable.FINDINGS: The final fluoroscopic image demonstrates the catheter with its tip in the right atrium. No complications are seen. IMPRESSION: Successful nontunneled PICC catheter placement via the right basilic vein.PLAN:The catheter is ready for immediate use. When treatment is completed, this catheter can be removed at the bedside according to standard hospital protocol.Electronically signed by: Nathaly Ventura MD 10/03/2020 1:58 PM CDT CHEST 1 VIEW [id number] 13:53:10 [facility] : 1955 Sex: MEXAMINATION: XR CHEST 1 VIEW.HISTORY: Pleural effusion, ascites, abdominal distention, RAMIRO, sepsis.COMPARISON: Chest x-ray 10/02/20.FINDINGS:Examination is limited due to portable technique and low lung volumes.Cardiac silhouette/Mediastinal contour: Within normal limits. Atherosclerotic calcification ofaortic arch.Lungs: No focal consolidation. Trace bilateral pleural effusion. No radiographic evidence of pneumothorax.Osseous Structures: Degenerative changes of thoracic spine.Additional Findings: Right-sided PICC tip terminates over right atrium.IMPRESSION: No radiographic evidence of pneumothorax status post right thoracentesis.Electronically signed by: Nathaly Ventura MD 10/03/2020 1:53 PM CDT WITH MANUAL DIFF *WW*2020-10-03 03:01:00 Test Item Value Reference Range Interpretation Comments WBC (test code = 24.6 10\S\3/uL 4.5-11.0 H WBC) RBC (test code = 4.17 10\S\6/uL 4.20-5.60 L RBC) HGB (test code = 9.5 g/dL 14.0-18.0 L HBG) HCT (test code = 30.7 % 35.0-46.0 L HCT) MCV (test code = 73.6 fL 80.0-94.0 L MCV) MCH (test code = 22.8 pg 27.0-31.0 L MCH) MCHC (test code = 30.9 g/dL 32.0-36.0 L MCHC) RDW (test code = 21.0 % 11.5-14.5 H RDW) PLT (test code = 137 10\S\3/uL 130-400 PLT) MPV (test code = 10.1 fL 9.4-12.4 MPV) NEUTROP # (test 21.2 10\S\3/uL 2.0-8.0 H code = NE#) LYMPH # (test code 0.4 10\S\3/uL 1.2-4.0 L = LY#) MONOCYTE # (test 2.5 10\S\3/uL 0.0-1.1 H code = MO#) EOSINOPH # (test 0.0 10\S\3/uL 0.0-0.7 code = EO#) BASOPHIL # (test 0.0 10\S\3/uL 0.0-0.3 code = BA#) IG # (test code = 0.45 10\S\3/uL 0.00-0.06 H IG#) NRBC # (test code = 0.00 10\S\3/uL 0.00-0.01 NRBC#) NEUTROPH % (test 86.1 % 35.0-73.0 H code = NE%) LYMPH % (test code 1.7 % 20.0-55.0 L = LY%) MONO % (test code = 10.2 % 2.5-10.0 H MO%) EOSINOPH % (test 0.0 % 0.0-5.0 code = EO%) BASOPHIL % (test 0.2 % 0.0-2.0 code = BA%) IG % (test code = 1.8 % 0.0-0.8 H IG%) NRBC% (test code = 0.0 % 0.0-0.2 NRBC%) MAN DIFF (test code MANUAL = HMDIFF) DIFFERENTIAL SEG (test code = 91 % 42-75 H SEG) BAND (test code = 0 % 0-8 BAND) LYMPH (test code = 2 % 20-51 L LYMPH) MONO (test code = 7 % 3-11 MONO) EOS (test code = 0 % See_Comment [Automated EOS) message] The sy stem which generated this result transmitted reference range : <=10. The refer ence range was not u sed to interpret th is result as normal/abnormal . BASO (test code = 0 % 0-2 BASO) RBC MORPH (test ABNORMAL NORMAL A code = RBCMORN) PLT EST (test code ADEQUATE ADEQUATE = PLTEST) PLT MORPH (test NORMAL (1.5-3 NORMAL code = PLTMOR) um) POIK (test code = 1+ NONE A POIK) HYPOCHROM (test 1+ NONE A code = HYPOC) TARGET (test code = 1+ NONE A TARG) OVALOCYTES (test 1+ NONE A code = OVA) COMPREHENSIVE METABOLIC ELLISON *WW*2020-10-03 02:20:00 Test Item Value Reference Range Interpretation Comments GLUCOSE (test code 118 mg/dL 75-100 H = 06D) SODIUM (test code 135 mmol/L 136-145 L = 01A) POTASSIUM (test 4.0 mmol/L 3.6-5.1 code = 01B) CHLORIDE (test 103 mmol/L 98-107 code = 04A) CO2 (test code = 23 mmol/L 22-32 02A) ANION GAP (test 13.0 mmol/L code = ANG) BUN (test code = 82 mg/dL 7-18 H 05D) CREATININE (test 3.0 mg/dL 0.7-1.3 H code = 03E) GFR (test code = 21 See_Comment L [Automated GFR) mL/min/1.73m\S\2 message] Th e system which generated this result transmit kaleb reference range : >=90. The reference range was not used to interpret this result as normal/abnormal . GFR 25 See_Comment L [Automated CEN[place]AL A[place] (test mL/min/1.73m\S\2 message] The code = GFRAA) system which generated this result transmit kaleb reference range : >=90. The reference range was not used to interpret this result as normal/abnormal . EGFR (test code = eGFR BY EGFR) CKD-EPI CALCULATION IS NOT RECOMMENDED FOR PATIENTS UNDER 18 YEARS OF AGE. BUN/CREA (test 28 12-20 H code = BCR) CALCIUM (test code 8.5 mg/dL 8.3-9.5 = 09D) BILI TOTAL (test 1.2 mg/dL 0.2-1.0 H code = 11A) PROTEIN (test code 7.8 g/dL 6.4-8.2 = 07D) ALBUMIN (test code 2.2 g/dL 3.5-4.8 L = 08D) GLOBULIN (test 5.7 g/dL 1.5-3.8 H code = GLB) ALB/GLOB (test 0.4 1.0-2.6 L code = AGRR) ALK PHOS (test 104 IU/L 42-121 code = 35A) AST (test code = 11 IU/L See_Comment [Automated 30A) message] The system which generated this result transmit kaleb reference range : <=42. The reference range was not used to interpret this result as normal/abnormal . ALT (test code = 8 IU/L See_Comment [Automated 31A) message] The system which generated this result transmit kaleb reference range : <=78. The reference range was not used to interpret this result as normal/abnormal . XR CHEST 1 VIEW PORTABLE *WW*2020-10-02 20:15:41 [facility] 1955 Sex: MEXAM: Chest one view.Location: [id number]: Pleural effusion, ,COMPARISON: None available.FINDINGS: Lungvolumes are low. There are [id number] bilateral pleural effusions. Airspace opacities are present at bilateral lung bases. Cardiac silhouette is mildly to moderately enlarged. There is no pneumothorax. There is prominence of interstitial markings. Visualized skeletal structures are unremarkable.IMPRESSION: Small to moderate bilateral pleural effusions with adjacent compressive atelectasis/consolidation.Cardiomegaly and slight prominence of interstitial markings may indicate edema.Electronically signed by: Hernan Erickson MD 10/02/2020 8:15 PM CDT WITH MORPHOLOGY *WW*2020-10-02 07:00:00 Test Item Value Reference Range Interpretation Comments WBC (test code = WBC) 17.4 10\S\3/uL 4.5-11.0 H RBC (test code = RBC) 3.66 10\S\6/uL 4.20-5.60 L HGB (test code = HBG) 8.4 g/dL 14.0-18.0 L HCT (test code = HCT) 26.4 % 35.0-46.0 L MCV (test code = MCV) 72.1 fL 80.0-94.0 L MCH (test code = MCH) 23.0 pg 27.0-31.0 L MCHC (test code = MCHC) 31.8 g/dL 32.0-36.0 L RDW (test code = RDW) 20.5 % 11.5-14.5 H PLT (test code = PLT) 78 10\S\3/uL 130-400 L MPV (test code = MPV) 10.7 fL 9.4-12.4 NEUTROP # (test code = NE#) 15.3 10\S\3/uL 2.0-8.0 H LYMPH # (test code = LY#) 0.3 10\S\3/uL 1.2-4.0 L MONOCYTE # (test code = 1.5 10\S\3/uL 0.0-1.1 H MO#) EOSINOPH # (test code = 0.0 10\S\3/uL 0.0-0.7 EO#) BASOPHIL # (test code = 0.0 10\S\3/uL 0.0-0.3 BA#) IG # (test code = IG#) 0.30 10\S\3/uL 0.00-0.06 H NRBC # (test code = NRBC#) 0.00 10\S\3/uL 0.00-0.01 NEUTROPH % (test code = 87.7 % 35.0-73.0 H NE%) LYMPH % (test code = LY%) 1.7 % 20.0-55.0 L MONO % (test code = MO%) 8.7 % 2.5-10.0 EOSINOPH % (test code = 0.1 % 0.0-5.0 EO%) BASOPHIL % (test code = 0.1 % 0.0-2.0 BA%) IG % (test code = IG%) 1.7 % 0.0-0.8 H NRBC% (test code = NRBC%) 0.0 % 0.0-0.2 PLT EST (test code = DECREASED ADEQUATE A PLTEST) PLT MORPH (test code = NORMAL (1.5-3 um) NORMAL PLTMOR) ANISO (test code = ANISO) 1+ NONE A HYPOCHROM (test code = 1+ NONE A HYPOC) MICROCYTIC (test code = 1+ NONE A MICRO) TARGET (test code = TARG) 1+ NONE A BASIC METABOLIC PANEL 2020-10-02 05:14:00 Test Item Value Reference Range Interpretation Comments GLUCOSE (test code 133 mg/dL 75-100 H = 06D) SODIUM (test code 134 mmol/L 136-145 L = 01A) POTASSIUM (test 3.9 mmol/L 3.6-5.1 code = 01B) CHLORIDE (test 103 mmol/L 98-107 code = 04A) CO2 (test code = 22 mmol/L 22-32 02A) ANION GAP (test 12.9 mmol/L code = ANG) BUN (test code = 90 mg/dL 7-18 H 05D) CREATININE (test 3.1 mg/dL 0.7-1.3 H code = 03E) GFR (test code = 20 See_Comment L [Automated GFR) mL/min/1.73m\S\2 message] Th e system which generated this result transmit kaleb reference range : >=90. The reference range was not used to interpret this result as normal/abnormal . GFR 23 See_Comment L [Automated [employer] (test mL/min/1.73m\S\2 message] The code = GFRAA) system which generated this result transmit kaleb reference range : >=90. The reference range was not used to interpret this result as normal/abnormal . EGFR (test code = eGFR BY EGFR) CKD-EPI CALCULATION IS NOT RECOMMENDED FOR PATIENTS UNDER 18 YEARS OF AGE. BUN/CREA (test 29 12-20 H code = BCR) CALCIUM (test code 8.4 mg/dL 8.3-9.5 = 09D) CBC WITH MORPHOLOGY *WW*2020-10-01 06:18:00 Test Item Value Reference Range Interpretation Comments WBC (test code = WBC) 16.6 10\S\3/uL 4.5-11.0 H RBC (test code = RBC) 3.50 10\S\6/uL 4.20-5.60 L HGB (test code = HBG) 7.9 g/dL 14.0-18.0 L HCT (test code = HCT) 25.3 % 35.0-46.0 L MCV (test code = MCV) 72.3 fL 80.0-94.0 L MCH (test code = MCH) 22.6 pg 27.0-31.0 L MCHC (test code = MCHC) 31.2 g/dL 32.0-36.0 L RDW (test code = RDW) 20.3 % 11.5-14.5 H PLT (test code = PLT) 77 10\S\3/uL 130-400 L MPV (test code = MPV) 0.0 fL 9.4-12.4 L NEUTROP # (test code = NE#) 14.1 10\S\3/uL 2.0-8.0 H LYMPH # (test code = LY#) 0.4 10\S\3/uL 1.2-4.0 L MONOCYTE # (test code = 1.5 10\S\3/uL 0.0-1.1 H MO#) EOSINOPH # (test code = 0.1 10\S\3/uL 0.0-0.7 EO#) BASOPHIL # (test code = 0.0 10\S\3/uL 0.0-0.3 BA#) IG # (test code = IG#) 0.45 10\S\3/uL 0.00-0.06 H NRBC # (test code = NRBC#) 0.02 10\S\3/uL 0.00-0.01 H NEUTROPH % (test code = 85.3 % 35.0-73.0 H NE%) LYMPH % (test code = LY%) 2.3 % 20.0-55.0 L MONO % (test code = MO%) 9.0 % 2.5-10.0 EOSINOPH % (test code = 0.5 % 0.0-5.0 EO%) BASOPHIL % (test code = 0.2 % 0.0-2.0 BA%) IG % (test code = IG%) 2.7 % 0.0-0.8 H NRBC% (test code = NRBC%) 0.1 % 0.0-0.2 PLT EST (test code = DECREASED ADEQUATE A PLTEST) PLT MORPH (test code = NORMAL (1.5-3 um) NORMAL PLTMOR) HYPOCHROM (test code = 1+ NONE A HYPOC) TARGET (test code = TARG) 1+ NONE A URINALYSIS WITH MICRO *WW*2020-10-01 06:06:00 Test Item Value Reference Range Interpretation Comments COLOR (test code = COLU) YELLOW YELLOW CLARITY (test code = CLA) SLT HAZY CLEAR A GLUCOSE UR (test code = UA GLUCOSE) NEGATIVE NEGATIVE BILI UR (test code = BILE) NEGATIVE NEGATIVE KETONES UR (test code = ARMAND) NEGATIVE NEGATIVE SP GRAVITY (test code = SPGR) 1.010 1.005-1.030 PH UR (test code = PH) 5.5 4.5-8.0 PROTEIN UR (test code = PU) NEGATIVE NEGATIVE UROBIL UR (test code = UROQ) 0.2 EU/dL 0.2-1.0 NITRITE UR (test code = NITRITE) NEGATIVE NEGATIVE BLOOD UR (test code = UA BLOOD) 3+ NEGATIVE A LEUK ES UR (test code = LEUK) NEGATIVE NEGATIVE WBC UR (test code = UWBC) 1 /HPF 0-3 RBC UR (test code = URBC) 20 /HPF 0-2 H EPITH UR (test code = UEPC) FEW /LPF NONE A BACTERIA UR (test code = UBACT) FEW /HPF NONE A CAST UR (test code = CAST) /LPF NONE CRYSTAL UR (test code = CRYU) / LPF NONE MUCUS UR (test code = MUC) FEW / HPF NONE A AMORPH UR (test code = KASANDRA) / HPF NONE TRICH UR (test code = UTRICH) /HPF NONE YEAST UR (test code = UY) /HPF NONE SPERM UR (test code = USPERM) /HPF NONE BASIC METABOLIC PANEL 2020-10-01 04:54:00 Test Item Value Reference Range Interpretation Comments GLUCOSE (test code 109 mg/dL 75-100 H = 06D) SODIUM (test code 131 mmol/L 136-145 L = 01A) POTASSIUM (test 3.7 mmol/L 3.6-5.1 code = 01B) CHLORIDE (test 100 mmol/L 98-107 code = 04A) CO2 (test code = 21 mmol/L 22-32 L 02A) ANION GAP (test 13.7 mmol/L code = ANG) BUN (test code = 99 mg/dL 7-18 H 05D) CREATININE (test 3.7 mg/dL 0.7-1.3 H code = 03E) GFR (test code = 16 See_Comment L [Automated GFR) mL/min/1.73m\S\2 message] Th e system which generated this result transmit kaleb reference range : >=90. The reference range was not used to interpret this result as normal/abnormal . GFR 19 See_Comment L [Automated CENTRAL AFRICAN (test mL/min/1.73m\S\2 message] The code = GFRAA) system which generated this result transmit kaleb reference range : >=90. The reference range was not used to interpret this result as normal/abnormal . EGFR (test code = eGFR BY EGFR) CKD-EPI CALCULATION IS NOT RECOMMENDED FOR PATIENTS UNDER 18 YEARS OF AGE. BUN/CREA (test 27 12-20 H code = BCR) CALCIUM (test code 8.2 mg/dL 8.3-9.5 L = 09D) BASIC METABOLIC PANEL 2020-09-30 21:28:00 Test Item Value Reference Range Interpretation Comments GLUCOSE (test code 126 mg/dL 75-100 H = 06D) SODIUM (test code 131 mmol/L 136-145 L = 01A) POTASSIUM (test 3.8 mmol/L 3.6-5.1 code = 01B) CHLORIDE (test 100 mmol/L 98-107 code = 04A) CO2 (test code = 21 mmol/L 22-32 L 02A) ANION GAP (test 13.8 mmol/L code = ANG) BUN (test code = 102 mg/dL 7-18 H 05D) CREATININE (test 3.9 mg/dL 0.7-1.3 H code = 03E) GFR (test code = 15 See_Comment L [Automated GFR) mL/min/1.73m\S\2 message] Th e system which generated this result transmit kaleb reference range : >=90. The reference range was not used to interpret this result as normal/abnormal . GFR 18 See_Comment L [Automated CENTRAL AFRICAN (test mL/min/1.73m\S\2 message] The code = GFRAA) system which generated this result transmit kaleb reference range : >=90. The reference range was not used to interpret this result as normal/abnormal . EGFR (test code = eGFR BY EGFR) CKD-EPI CALCULATION IS NOT RECOMMENDED FOR PATIENTS UNDER 18 YEARS OF AGE. BUN/CREA (test 26 12-20 H code = BCR) CALCIUM (test code 8.2 mg/dL 8.3-9.5 L = 09D) BASIC METABOLIC PANEL 2020-09-30 10:29:00 Test Item Value Reference Range Interpretation Comments GLUCOSE (test code 155 mg/dL 75-100 H = 06D) SODIUM (test code 128 mmol/L 136-145 L = 01A) POTASSIUM (test 4.0 mmol/L 3.6-5.1 code = 01B) CHLORIDE (test 95 mmol/L 98-107 L code = 04A) CO2 (test code = 22 mmol/L 22-32 02A) ANION GAP (test 15.0 mmol/L code = ANG) BUN (test code = 108 mg/dL 7-18 H 05D) CREATININE (test 4.2 mg/dL 0.7-1.3 H code = 03E) GFR (test code = 14 See_Comment L [Automated GFR) mL/min/1.73m\S\2 message] Th e system which generated this result transmit kaleb reference range : >=90. The reference range was not used to interpret this result as normal/abnormal . GFR 16 See_Comment L [Automated CEN[employer]AL AFRICAN (test mL/min/1.73m\S\2 message] The code = GFRAA) system which generated this result transmit kaleb reference range : >=90. The reference range was not used to interpret this result as normal/abnormal . EGFR (test code = eGFR BY EGFR) CKD-EPI CALCULATION IS NOT RECOMMENDED FOR PATIENTS UNDER 18 YEARS OF AGE. BUN/CREA (test 26 12-20 H code = BCR) CALCIUM (test code 8.2 mg/dL 8.3-9.5 L = 09D) U/S KIDNEY (RENAL)*WW*2020-09-30 08:50:18 [facility] 1955 Sex: MRENAL SONOGRAMLOCATION CODE: [id number]: Acute renal failureTECHNIQUE: Static sonographic images are provided for interpretation. Grayscale and color Doppler images.COMPARISON: None availableFINDINGS:There is large ascites. Overall, limited parenchymal detail.Kidneys are poorly defined. Right kidney measures approximately 6 cm in length. Left kidney measures approximately 10.7 cm in length. No gross hydronephrosis bilaterally.A Mccord catheter decompresses the urinary bladder.Incidental note of gallstones/sludge balls within gallbladder lumen.IMPRESSION:1. Somewhat limited exam.2. Large ascites.3. Echogenic atrophic kidneys compatible with chronic underlying renal disease.4. No hydronephrosis.Electronically signed by: Sara Maldonado MD 09/30/2020 8:50 AM CDT WITH MORPHOLOGY *WW*2020-09-30 05:43:00 Test Item Value Reference Range Interpretation Comments WBC (test code = WBC) 21.5 10\S\3/uL 4.5-11.0 H RBC (test code = RBC) 3.63 10\S\6/uL 4.20-5.60 L HGB (test code = HBG) 8.3 g/dL 14.0-18.0 L HCT (test code = HCT) 26.0 % 35.0-46.0 L MCV (test code = MCV) 71.6 fL 80.0-94.0 L MCH (test code = MCH) 22.9 pg 27.0-31.0 L MCHC (test code = MCHC) 31.9 g/dL 32.0-36.0 L RDW (test code = RDW) 20.5 % 11.5-14.5 H PLT (test code = PLT) 74 10\S\3/uL 130-400 L MPV (test code = MPV) 0.0 fL 9.4-12.4 L NEUTROP # (test code = NE#) 18.9 10\S\3/uL 2.0-8.0 H LYMPH # (test code = LY#) 0.5 10\S\3/uL 1.2-4.0 L MONOCYTE # (test code = 1.1 10\S\3/uL 0.0-1.1 MO#) EOSINOPH # (test code = 0.0 10\S\3/uL 0.0-0.7 EO#) BASOPHIL # (test code = 0.1 10\S\3/uL 0.0-0.3 BA#) IG # (test code = IG#) 0.94 10\S\3/uL 0.00-0.06 H NRBC # (test code = NRBC#) 0.00 10\S\3/uL 0.00-0.01 NEUTROPH % (test code = 87.9 % 35.0-73.0 H NE%) LYMPH % (test code = LY%) 2.3 % 20.0-55.0 L MONO % (test code = MO%) 5.1 % 2.5-10.0 EOSINOPH % (test code = 0.0 % 0.0-5.0 EO%) BASOPHIL % (test code = 0.3 % 0.0-2.0 BA%) IG % (test code = IG%) 4.4 % 0.0-0.8 H NRBC% (test code = NRBC%) 0.0 % 0.0-0.2 PLT EST (test code = DECREASED ADEQUATE A PLTEST) PLT MORPH (test code = NORMAL (1.5-3 um) NORMAL PLTMOR) ANISO (test code = ANISO) 1+ NONE A POIK (test code = POIK) 1+ NONE A HYPOCHROM (test code = 1+ NONE A HYPOC) OVALOCYTES (test code = 1+ NONE A OVA) BASIC METABOLIC PANEL *[facility]2020-09-29 20:58:00 Test Item Value Reference Range Interpretation Comments GLUCOSE (test code 164 mg/dL 75-100 H = 06D) SODIUM (test code 128 mmol/L 136-145 L = 01A) POTASSIUM (test 4.6 mmol/L 3.6-5.1 code = 01B) CHLORIDE (test 94 mmol/L 98-107 L code = 04A) CO2 (test code = 19 mmol/L 22-32 L 02A) ANION GAP (test 19.6 mmol/L code = ANG) BUN (test code = 112 mg/dL 7-18 H 05D) CREATININE (test 4.6 mg/dL 0.7-1.3 H code = 03E) GFR (test code = 12 See_Comment L [Automated GFR) mL/min/1.73m\S\2 message] Th e system which generated this result transmit kaleb reference range : >=90. The reference range was not used to interpret this result as normal/abnormal . GFR 14 See_Comment L [Automated CENTRAL AFRICAN (test mL/min/1.73m\S\2 message] The code = GFRAA) system which generated this result transmit kaleb reference range : >=90. The reference range was not used to interpret this result as normal/abnormal . EGFR (test code = eGFR BY EGFR) CKD-EPI CALCULATION IS NOT RECOMMENDED FOR PATIENTS UNDER 18 YEARS OF AGE. BUN/CREA (test 24 12-20 H code = BCR) CALCIUM (test code 8.1 mg/dL 8.3-9.5 L = 09D) T4 FREE *WW*2020-09-29 10:56:00 Test Item Value Reference Range Interpretation Comments T4 FREE (test code = A91) 0.85 ng/dL 0.76-1.46 LIVER PROFILE WW2020-09-29 10:44:00 Test Item Value Reference Range Interpretation Comments BILI TOTAL (test code 2.7 mg/dL 0.2-1.0 H = 11A) BILI DIRCT (test code 2.2 mg/dL 0.0-0.2 H = 12A) BILI INDIR (test code 0.5 mg/dL See_Comment [Auto mated message] = BILII) The system [employer] generated this result transmitted ref erence range: <=0.8. T he reference range was not used to interpr et this result as normal/abnormal . PROTEIN (test code = 6.8 g/dL 6.4-8.2 07D) ALBUMIN (test code = 1.9 g/dL 3.5-4.8 L 08D) GLOBULIN (test code = 5.0 g/dL 1.5-3.8 H GLB) ALB/GLOB (test code = 0.4 1.0-2.6 L AGRR) ALK PHOS (test code = 140 IU/L 42-121 H 35A) AST (test code = 30A) 16 IU/L See_Comment [Auto mated message] The system [employer] generated this result transmitted ref erence range: <=42. Th e reference range was not used to interpr et this result as normal/abnormal . ALT (test code = 31A) 10 IU/L See_Comment [Auto mated message] The system [employer] generated this result transmitted ref erence range: <=78. Th e reference range was not used to interpr et this result as normal/abnormal . THYROID PANEL/SCREEN (TSH) *WW*2020-09-29 10:38:00 Test Item Value Reference Range Interpretation Comments TSH (test code = WTSH) 8.730 uIU/mL 0.358-3.740 H COMPREHENSIVE METABOLIC ELLISON *WW*2020-09-29 10:32:00 Test Item Value Reference Range Interpretation Comments GLUCOSE (test code 123 mg/dL 75-100 H = 06D) SODIUM (test code 122 mmol/L 136-145 L = 01A) POTASSIUM (test 4.5 mmol/L 3.6-5.1 code = 01B) CHLORIDE (test 87 mmol/L 98-107 L code = 04A) CO2 (test code = 22 mmol/L 22-32 02A) ANION GAP (test 17.5 mmol/L code = ANG) BUN (test code = 120 mg/dL 7-18 H 05D) CREATININE (test 4.8 mg/dL 0.7-1.3 H code = 03E) GFR (test code = 12 See_Comment L [Automated GFR) mL/min/1.73m\S\2 message] Th e system which generated this result transmit kaleb reference range : >=90. The reference range was not used to interpret this result as normal/abnormal . GFR 14 See_Comment L [Automated CENTRAL AFRICAN (test mL/min/1.73m\S\2 message] The code = GFRAA) system which generated this result transmit kaleb reference range : >=90. The reference range was not used to interpret this result as normal/abnormal . EGFR (test code = eGFR BY EGFR) CKD-EPI CALCULATION IS NOT RECOMMENDED FOR PATIENTS UNDER 18 YEARS OF AGE. BUN/CREA (test 25 12-20 H code = BCR) CALCIUM (test code 7.6 mg/dL 8.3-9.5 L = 09D) BILI TOTAL (test 2.7 mg/dL 0.2-1.0 H code = 11A) PROTEIN (test code 6.8 g/dL 6.4-8.2 = 07D) ALBUMIN (test code 1.9 g/dL 3.5-4.8 L = 08D) GLOBULIN (test 5.0 g/dL 1.5-3.8 H code = GLB) ALB/GLOB (test 0.4 1.0-2.6 L code = AGRR) ALK PHOS (test 140 IU/L 42-121 H code = 35A) AST (test code = 16 IU/L See_Comment [Automated 30A) message] The system which generated this result transmit kaleb reference range : <=42. The reference range was not used to interpret this result as normal/abnormal . ALT (test code = 10 IU/L See_Comment [Automated 31A) message] The system which generated this result transmit kaleb reference range : <=78. The reference range was not used to interpret this result as normal/abnormal . CBC WITH MANUAL DIFF *WW*2020-09-29 10:29:00 Test Item Value Reference Range Interpretation Comments WBC (test code = 26.3 10\S\3/uL 4.5-11.0 HH WBC) RBC (test code = 3.92 10\S\6/uL 4.20-5.60 L RBC) HGB (test code = 8.7 g/dL 14.0-18.0 L HBG) HCT (test code = 28.2 % 35.0-46.0 L HCT) MCV (test code = 71.9 fL 80.0-94.0 L MCV) MCH (test code = 22.2 pg 27.0-31.0 L MCH) MCHC (test code = 30.9 g/dL 32.0-36.0 L MCHC) RDW (test code = 19.9 % 11.5-14.5 H RDW) PLT (test code = 71 10\S\3/uL 130-400 L PLT) MPV (test code = 0.0 fL 9.4-12.4 L MPV) NEUTROP # (test 22.7 10\S\3/uL 2.0-8.0 H code = NE#) LYMPH # (test code 0.5 10\S\3/uL 1.2-4.0 L = LY#) MONOCYTE # (test 1.7 10\S\3/uL 0.0-1.1 H code = MO#) EOSINOPH # (test 0.1 10\S\3/uL 0.0-0.7 code = EO#) BASOPHIL # (test 0.1 10\S\3/uL 0.0-0.3 code = BA#) IG # (test code = 1.26 10\S\3/uL 0.00-0.06 H IG#) NRBC # (test code 0.00 10\S\3/uL 0.00-0.01 = NRBC#) NEUTROPH % (test 86.2 % 35.0-73.0 H code = NE%) LYMPH % (test code 1.9 % 20.0-55.0 L = LY%) MONO % (test code 6.3 % 2.5-10.0 = MO%) EOSINOPH % (test 0.5 % 0.0-5.0 code = EO%) BASOPHIL % (test 0.3 % 0.0-2.0 code = BA%) IG % (test code = 4.8 % 0.0-0.8 H IG%) NRBC% (test code = 0.0 % 0.0-0.2 NRBC%) MAN DIFF (test MANUAL code = HMDIFF) DIFFERENTIAL SEG (test code = 91 % 42-75 H SEG) BAND (test code = 0 % 0-8 BAND) LYMPH (test code = 2 % 20-51 L LYMPH) MONO (test code = 7 % 3-11 MONO) EOS (test code = 0 % See_Comment [Automated EOS) message] The sy stem which generated this result transmitted reference range : <=10. The refer ence range was not u sed to interpret th is result as normal/abnormal . BASO (test code = 0 % 0-2 BASO) RBC MORPH (test ABNORMAL NORMAL A code = RBCMORN) PLT EST (test code DECREASED ADEQUATE A = PLTEST) PLT MORPH (test NORMAL (1.5-3 um) NORMAL Few lar ge PLT seen. code = PLTMOR) ANISO (test code = 2+ NONE A ANISO) POLYCHROM (test 1+ NONE A code = POLY) VACUOLES (test PRESENT NONE A code = VAC) OVALOCYTES (test 1+ NONE A code = OVA) LACTIC ACID WW2020-09-29 10:21:00 Test Item Value Reference Range Interpretation Comments LACTIC ACD (test code = LA) 1.5 mmol/L 0.4-2.0 MAGNESIUM WW2020-09-29 10:17:00 Test Item Value Reference Range Interpretation Comments MAGNESIUM (test code = 48A) 2.2 mg/dL 1.8-2.4 PRO TIME AND PTT *WW*2020-09-29 10:13:00 Test Item Value Reference Range Interpretation Comments PT (test code = 16.7 s 9.8-13.6 H TT) INR (test code = 1.5 INR) INRH (test code = SUGGESTED INRH) THERAPEUTIC RANGE FOR INR: 2.5 - 3.5 For Patients with Prosthetic Valves or Patients with recurrent Thromboembolic Events 2.0 - 3.0 For Most Other Applications PTT (test code = 25.0 s 20.2-38.0 PTT) PTTH (test code = To monitor the PTTH) effectiveness of heparin, we offer the Anti-Xa (Heparin Assay). It can be used for either unfractionated or LMW Heparin. Order Code is ANTI-XA AMMONIA BLOOD 2020-09-29 10:12:00 Test Item Value Reference Range Interpretation Comments AMMONIA (test code = 54A) 19 umol/L 11-32 CT HEAD W/O CONTRAST 2020-09-29 03:02:43 [facility] : 1955 Sex: MEXAM: CT HEAD WITHOUT IV CONTRASTLOCATION: [id number] HISTORY/INDICATION: Injury of head TECHNIQUE: Helical CT acquisition of the head was obtained without IV contrast. Images were reconstructed in the axial, sagittal and coronal planes. This examination was performed according to our departmental doseoptimization program, which includes automated exposure control, adjustment of the mA and/or kV according to patient size, and/or use of iterative reconstruction technique.COMPARISON: NoneFINDINGS:Sulci and ventricles: Appropriate for patient's age. No hydrocephalus.Parenchyma: No CT evidence of acutelarge territorial infarct, hemorrhage or mass effect. Encephalomalacia in the left frontal lobe with cystic component extending to the body of the left lateral ventricle.Extra-axial spaces:No fluid collection or mass.Scalp: No abnormalities.Bones: No calvarial fracture. Left frontal wilda hole is noted .Paranasal sinuses and mastoid air cells: Clear.IMPRESSION:1. No acute intracranial abnormality.2. Left frontal lobe cystic encephalomalacia. Electronically signed by: Jerome Guevara MD 09/29/2020 3:02 [facility]
[2020-10-19 12:15] LABS: Absolute Lymphocytes (CBC) 0.1 K/uL (0.7-4.9); Basophils % 0.6 % (0-1.3); Hematocrit 27.5 % (39.6-49.0); Lymphocytes % 0.8 % (15.3-44.8); MPV 8.9 fL (7.6-11.3); RBC Red Blood Cell Count 2.92 M/uL (4.33-5.43)
[2020-10-19 12:16] LABS: Protime INR 2.35
[2020-10-19 12:27] LABS: Arterial Blood Carboxyhemoglob 2.9 % (0-1.5); Blood Gas Oxyhemoglobin 85.2 % (94-97); Blood O2 Saturation 88.5 % (92-98.5)
[2020-10-19] MEDS ORDERED: NA CHLORIDE 0.9% 2,000 ML ONE (12:29)
[2020-10-19] MEDS ORDERED: NOREPINEPHRINE 4mg/D5W 250mL 4 MG/250 ML BAG IV ONE (12:30)
[2020-10-19 12:35] LABS: ALT/SGPT 210 U/L (12-78); Albumin 1.6 g/dL (3.4-5.0); Alkaline Phosphatase 160 U/L (45-117); BUN Blood Urea Nitrogen 99 mg/dL (7-18); Bicarbonate 19 mmol/L (21-32); Bilirubin Direct 1.2 mg/dL (0-0.2); Bilirubin Total 1.8 mg/dL (0.2-1.0); Glucose Level 98 mg/dL (74-106); Magnesium 2.1 mg/dL (1.8-2.4); NT PRO-BNP 2555 pg/mL (<125); Potassium 5.2 mmol/L (3.5-5.1); Protein, Total 5.4 g/dL (6.4-8.2); Sodium Level 139 mmol/L (136-145); Troponin (Emerg Dept Use Only) < 0.02 ng/mL (0.0-0.045)
--- NOTE | 2020-10-19 12:35 | RAD REPORT ---
EXAM DESCRIPTION: RAD - Chest Single View - 10/19/2020 12:29 pm CLINICAL HISTORY: DYSPNEA COMPARISON: None FINDINGS: Moderate bilateral pleural effusions which are layering. Endotracheal tube in place. Right subclavian approach PICC with tip overlying the expected location of the superior cavoatrial junctio n. Cardiomegaly. NG tube below the diaphragm overlying the stomach. No fractures are identified. Mild diffuse hazy opacities bilaterally appear IMPRESSION: Findings consistent with pulmonary edema with moderate layering pleural effusions. Suppo rt apparatus in satisfactory position.
[2020-10-19 12:42] LABS: AST/SGOT 858 U/L (15-37)
[2020-10-19] MEDS ORDERED: MIDAZOLAM HCL 2 MG/2 ML INJ ONE (13:10)
[2020-10-19] MEDS ORDERED: FENTANYL CITR 100 MCG/2 ML ONE (13:10)
[2020-10-19] MEDS ORDERED: ONDANSETRON 4 MG/2 ML VIAL ONE (13:11)
[2020-10-19] MEDS ORDERED: NA CHLORIDE 0.9% 1,000 ML ONE ×2 (13:16→22:59)
[2020-10-19 13:43] LABS: Anisocytosis 3+; Blood Morphology Comment NOTED (NOT SEEN); Platelet Estimate DECR; White Blood Cell Scan OK (OK)
[2020-10-19 13:45] LABS: Urine Blood 3+ (Negative); Urine Glucose Negative (Negative); Urine Protein 2+ (Negative); Urine Specific Gravity >=1.030 (1.005-1.030)
[2020-10-19] MEDS ORDERED: NA CHLORIDE 0.9% 250 ML ONE (13:55)
[2020-10-19] MEDS ORDERED: CEFEPIME/SWI 1gm 20 ML ONE (13:55)
[2020-10-19] MEDS ORDERED: VANCOMYCIN 1 GM/VIAL ONE (13:55)
[2020-10-19 14:00] LABS: Urine Bacteria 20-50 /HPF (NONE SEEN); Urine RBC >50 /HPF (NONE SEEN)
--- NOTE | 2020-10-19 14:02 | ER ---
Nurse's Notes [facility] Name: Frantz Alcazar Age: 65 yrs Sex: Male : 1955 Arrival Date: 10/19/2020 Time: 11:50 Bed 3 Private MD: Diagnosis: Acute kidney failure, unspecified-on chronic;Pleural effusion, not elsewhere classified;Severe sepsis with septic shock;Hypotension, unspecified;Anemia, unspecified;Other cirrhosis of liver;Unspecified combined systolic (congestive) and diastolic (congestive) heart failure;Other ascites;Hyperkalemia Presentation: 10/19 11:51 Chief complaint: EMS states: Found unresponsive by , agonal resp. BP 50/30, SpO2 hb 40% on RA, BGL 55 - 86 after D10. 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 Coronavirus screen: At this time, the client does not indicate any symptoms associated with coronavirus-19. Ebola Screen: No symptoms or risks identified at this time. 11:51 Acuity: ELENA 1 hb 11:51 Method Of Arrival: EMS: [facility] hb 12:00 Onset of symptoms is unknown. hb 12:00 Initial Sepsis Screen: Does the patient meet any 2 criteria? Yes Does the patient have hb a suspected source of infection? No. Patient's initial sepsis screen is negative. Risk Assessment: Do you want to hurt yourself or someone else? Unable to obtain. Historical: - Allergies: 13:53 No Known Allergies; hb - Immunization history:: Adult Immunizations up to date. - Family history:: not pertinent. - Social history:: Smoking status: Patient denies any tobacco usage or history of. Screenin:46 Abuse screen: Denies threats or abuse. Denies injuries from another. Nutritional hb screening: No deficits noted. Tuberculosis screening: No symptoms or risk factors identified. Fall Risk Total Desir Fall Scale indicates Low Risk Score (25-44 pts). Fall prevention measures have been instituted. Side Rails Up X 2 Frequent Obs/Assesments occuring Family Present and informed to notify staff if they need to leave bedside As available Patient and Family Educated on Fall Prevention Program and strategies. Assessment: 11:51 Reassessment: Dr. Agarwal and RT at bedside. hb 12:30 General: Appears in no apparent distress. Pain: Unable to use pain scale. FLACC scale hb score is 0 out of 10. Neuro: Level of Consciousness is intubated, sedated, responsive to pain . Cardiovascular: Patient's skin is warm and dry. Rhythm is regular. Respiratory: Airway via oral intubation Respiratory pattern is regular, symmetrical, Ventilator assessment: ET Tube: 7.0 23 cm at gum line. Ventilator Mode: Assist Control (AC) Tidal Volume: 500 Respiratory Rate: 14 FiO2: 60% PEEP: 5 HOB > 30 degrees. GI: No deficits noted. Oral gastric tube in place, to suction. : Mccord in place to gravity drainage. EENT: No signs and/or symptoms were reported regarding the EENT system. Derm: Skin is pink, warm \T\ dry. Musculoskeletal: No signs and/or symptoms reported regarding the musculoskeletal system. 13:15 Reassessment: Levo infusing at 10mcg/min. at bedside. Awaiting CT at this time. hb 14:01 Reassessment: Dr. Agarwal at bedside to discuss POC and code status. hb 14:12 Reassessment: Bernadine [phone]. hb 14:16 Reassessment: Pt to CT with Tootie RN, Brigida RT, and Grisel INCOMING FREIGHT CLERK. hb 14:33 Reassessment: Pt returned from CT. Levophed continues at 10mcg/min. remains at bedside. 15:25 Reassessment: Levophed increased to 15mcg/min. Pt admitted, awaiting hospitalist orders hb at this time. Vital Signs: 11:51 BP 47 / 34; Pulse 81; Resp 21; Pulse Ox 88% on 60% FiO2 ETT vent; hb 12:00 BP 96 / 78; Pulse 81; Resp 20; Pulse Ox 91% on ETT vent; iw 12:15 BP 46 / 36; Pulse 78; Resp 20; Pulse Ox 100% on 60% FiO2 ETT vent; hb 13:07 BP 73 / 53; Pulse 82; Resp 14; Pulse Ox 100% on 65% FiO2 ETT vent; hb 13:17 BP 69 / 53; Pulse 79; Resp 14; Pulse Ox 100% on 65% FiO2 ETT vent; hb 13:30 BP 73 / 59; Pulse 79; Resp 12; Pulse Ox 100% on 65% FiO2 ETT vent; hb 13:45 BP 87 / 62; Pulse 80; Resp 14; Pulse Ox 100% on 65% FiO2 ETT vent; hb 14:00 BP 87 / 66; Pulse 80; Resp 15; Pulse Ox 100% on 65% FiO2 ETT vent; hb 14:15 BP 94 / 74; Pulse 79; hb 14:30 BP 97 / 70; Pulse 79; Pulse Ox 100% ; hb 14:45 BP 84 / 63; Pulse 76; hb 15:00 BP 86 / 64; Pulse 76; Resp 15; Pulse Ox 100% ; hb 15:15 BP 85 / 61; Pulse 76; Resp 15; Pulse Ox 100% on 65% FiO2 ETT vent; hb 15:30 BP 130 / 73; Pulse 74; Resp 14; Pulse Ox 100% on 65% FiO2 ETT vent; hb 15:45 BP 119 / 80 (art line/); Pulse 63; Resp 15; Pulse Ox 100% on 65% FiO2 ETT vent; hb 16:00 BP 118 / 81; Pulse 66; Resp 15; Pulse Ox 100% on 65% FiO2 ETT vent; hb 16:15 BP 112 / 75; Pulse 71; Resp 15; Pulse Ox 100% on 65% FiO2 ETT vent; hb 16:30 BP 113 / 79; Pulse 66; Resp 14; hb 16:45 BP 116 / 81; Pulse 77; Resp 15; Pulse Ox 10% ; hb 17:00 BP 115 / 73; Pulse 59; Resp 14; Pulse Ox 100% on 65% FiO2 ETT vent; hb 17:15 BP 116 / 79; Pulse 57; Resp 14; Pulse Ox 100% on 65% FiO2 ETT vent; hb ED Course: 11:50 Patient arrived in ED. hb 11:52 Ben Agarwal MD is Attending Physician. sobeida 12:00 Patient has correct armband on for positive identification. Placed in gown. Bed in low hb position. Side rails up X2. monitoring analyst on. Pulse ox on. NIBP on. 12:02 Accessed PICC line. hb 12:02 Arm band placed on. hb 12:05 Triage completed. hb 12:16 NGT: inserted 16 Fr. other OGT verified return of gastric contents, to intermittent hb suction. Returned gastric contents. Returned bile. Amount of gastric contents removed by suction 100ml. Patient tolerated well. 12:29 XRAY Chest (1 view) In Process Unspecified. EDMS 12:32 Tootie Zendejas, OBDULIO is Primary Nurse. hb 13:38 Urine Microscopic Only Sent. bp 13:53 Ezra Scruggs MD is Hospitalizing Provider. sobeida 14:29 CT Traumagram (Head C Spine CAP wo con) In Process Unspecified. EDMS Administered Medications: 03:40 Drug: vancoMYCIN 1 grams Route: IVPB; Infused Over: 2 hrs; Site: PICC; hb 12:00 Drug: NS 0.9% 1000 ml Route: IV; Rate: 1 bolus; Site: PICC; hb 12:32 Follow up: Response: No change in condition; IV Status: Completed infusion; IV Intake: hb 1000ml 12:11 Drug: Levophed (norepinephrine) (4 mg/250 mL D5W 4 mcg/min Route: IV; Rate: calculated hb rate; Site: PICC; 12:20 Drug: NS 0.9% 1000 ml Route: IV; Rate: 1 bolus; Site: PICC; hb 12:44 Follow up: Response: No adverse reaction; IV Status: Completed infusion; IV Intake: hb 1000ml 12:40 Drug: ProTONIX (pantoprazole) 40 mg Route: IVP; Site: PICC; hb 13:05 Follow up: Response: No adverse reaction hb 13:00 Drug: Zofran (Ondansetron) 4 mg Route: IVP; Site: PICC; hb 13:56 Follow up: Response: No adverse reaction hb 13:00 Drug: Versed (midazolam) 4 mg Route: IVP; Site: PICC; hb 13:56 Follow up: Response: No adverse reaction hb 13:07 Drug: fentaNYL (PF) 25 mcg Route: IVP; Site: PICC; hb 13:56 Follow up: Response: No adverse reaction hb 13:40 Drug: Cefepime 2 grams Route: IVPB; Rate: 200 ml/hr; Infused Over: 30 mins; Site: PICC; hb 14:07 Follow up: Response: No adverse reaction; IV Status: Completed infusion; IV Intake: 20mlhb 13:40 Drug: NS 0.9% 1000 ml Route: IV; Rate: 125 ml/hr; Site: PICC; hb 14:04 Drug: Vitamin K1 (phytonadione) 10 mg Route: Sub-Q; Site: right upper arm; hb 15:33 Follow up: Response: No adverse reaction hb Intake: 12:32 IV: 1000ml; Total: 1000ml. hb 12:44 IV: 1000ml; Total: 2000ml. hb 14:07 IV: 20ml; Total: 2020ml. hb Ventilator: 12:30 Fi02: 50%; Rate: 14min; T.V.: 500ml; Peep: 5cm; ET tube: 7 fr; hb Outcome: 14:01 Decision to Hospitalize by Provider. sobeida 17:52 Patient left the ED. iw Signatures: Dispatcher [employer] EDBen Olivia MD MD cha Williams, Irene RN RN Tootie Zendejas, RN RN Jason Cisneros RN RN bp Corrections: (The following items were deleted from the chart) 14:56 14:12 Reassessment: Pt to CT with Tootie RN, Brigida RT, and Grisel INCOMING FREIGHT CLERK. hb hb 15:24 14:30 BP 97 / 10; Pulse 79bpm; Pulse Ox 100%; hb hb
--- NOTE | 2020-10-19 14:02 | EDPHYS ---
Physician Documentation [facility] Name: Frantz Alcazar Age: 65 yrs Sex: Male : 1955 Arrival Date: 10/19/2020 Time: 11:50 Bed 3 Private MD: ED Physician Ben Agarwal HPI: 10/19 11:59 This 65 yrs old Male presents to ER via Unassigned with complaints of sobeida Respiratory Failure - Intubated. 11:59 The patient has shortness of breath at rest, with light activity. Onset: The sobeida symptoms/episode began/occurred just prior to arrival. Duration: The symptoms are continuous, and are steadily getting worse. The patient's shortness of breath has no apparent modifying factors. found at home respiratory failure, hypoglycemia. The patient presents with unresponsive. Onset: The symptoms/episode began/occurred 2 day(s) ago. Possible causes: low blood sugar, sepsis, the patient has an indwelling Mccord catheter. Associated signs and symptoms: The patient has no apparent associated signs or symptoms. Historical: - Allergies: 13:53 No Known Allergies; hb - Immunization history:: Adult Immunizations up to date. - Family history:: not pertinent. - Social history:: Smoking status: Patient denies any tobacco usage or history of. ROS: 11:59 Eyes: Negative for injury, pain, redness, and discharge, ENT: Negative for injury, sobeida pain, and discharge, Neck: Negative for injury, pain, and swelling, Cardiovascular: Negative for chest pain, palpitations, and edema, Respiratory: Negative for shortness of breath, cough, wheezing, and pleuritic chest pain, Abdomen/GI: Negative for abdominal pain, nausea, vomiting, diarrhea, and constipation, Back: Negative for injury and pain, : Negative for injury, bleeding, discharge, and swelling, MS/Extremity: Negative for injury and deformity, Skin: Negative for injury, rash, and discoloration, Allergy/Immunology: Negative for hives, rash, and allergies, Endocrine: Negative for neck swelling, polydipsia, polyuria, polyphagia, and marked weight changes. 11:59 Constitutional: Positive for malaise, poor PO intake. 11:59 Respiratory: Positive for intubated. Exam: 12:01 Head/Face: Normocephalic, atraumatic. Eyes: Pupils equal round and reactive to light, sobeida extra-ocular motions intact. Lids and lashes normal. Conjunctiva and sclera are non-icteric and not injected. Cornea within normal limits. Periorbital areas with no swelling, redness, or edema. Back: No spinal tenderness. No costovertebral tenderness. Full range of motion. 12:01 Chest/axilla: Exam negative for 12:01 Cardiovascular: Rate: normal, Rhythm: regular, Pulses: Pulses are 4+ in bilateral radial, brachial, femoral, popliteal, posterior tibial and and dorsalis pedis arteries.. Heart sounds: normal, Edema: is not appreciated, JVD: is not appreciated. 12:01 Musculoskeletal/extremity: DVT Exam: No signs of deep vein thrombosis. no pain, no swelling, no tenderness, negative Homans' sign noted on exam, no appreciated bluish discoloration, no erythema, no increased warmth. 14:01 ECG was reviewed by the Attending Physician. [facility] Vital Signs: 11:51 BP 47 / 34; Pulse 81; Resp 21; Pulse Ox 88% on 60% FiO2 ETT vent; hb 12:00 BP 96 / 78; Pulse 81; Resp 20; Pulse Ox 91% on ETT vent; iw 12:15 BP 46 / 36; Pulse 78; Resp 20; Pulse Ox 100% on 60% FiO2 ETT vent; hb 13:07 BP 73 / 53; Pulse 82; Resp 14; Pulse Ox 100% on 65% FiO2 ETT vent; hb 13:17 BP 69 / 53; Pulse 79; Resp 14; Pulse Ox 100% on 65% FiO2 ETT vent; hb 13:30 BP 73 / 59; Pulse 79; Resp 12; Pulse Ox 100% on 65% FiO2 ETT vent; hb 13:45 BP 87 / 62; Pulse 80; Resp 14; Pulse Ox 100% on 65% FiO2 ETT vent; hb 14:00 BP 87 / 66; Pulse 80; Resp 15; Pulse Ox 100% on 65% FiO2 ETT vent; hb 14:15 BP 94 / 74; Pulse 79; hb 14:30 BP 97 / 70; Pulse 79; Pulse Ox 100% ; hb 14:45 BP 84 / 63; Pulse 76; hb 15:00 BP 86 / 64; Pulse 76; Resp 15; Pulse Ox 100% ; hb 15:15 BP 85 / 61; Pulse 76; Resp 15; Pulse Ox 100% on 65% FiO2 ETT vent; hb 15:30 BP 130 / 73; Pulse 74; Resp 14; Pulse Ox 100% on 65% FiO2 ETT vent; hb 15:45 BP 119 / 80 (art line/); Pulse 63; Resp 15; Pulse Ox 100% on 65% FiO2 ETT vent; hb 16:00 BP 118 / 81; Pulse 66; Resp 15; Pulse Ox 100% on 65% FiO2 ETT vent; hb 16:15 BP 112 / 75; Pulse 71; Resp 15; Pulse Ox 100% on 65% FiO2 ETT vent; hb 16:30 BP 113 / 79; Pulse 66; Resp 14; hb 16:45 BP 116 / 81; Pulse 77; Resp 15; Pulse Ox 10% ; hb 17:00 BP 115 / 73; Pulse 59; Resp 14; Pulse Ox 100% on 65% FiO2 ETT vent; hb 17:15 BP 116 / 79; Pulse 57; Resp 14; Pulse Ox 100% on 65% FiO2 ETT vent; hb Ventilator: 12:30 Fi02: 50%; Rate: 14min; T.V.: 500ml; Peep: 5cm; ET tube: 7 fr; hb MDM: 11:52 Patient medically screened. sobeida 12:02 Differential diagnosis: CHF exacerbation, Chronic Obstructive Pulmonary Disease sobeida pneumonia, Pneumothorax pulmonary edema, reactive airway disease, Sepsis. Antibiotic administration: vanco/cefepime. Differential Diagnosis altered mental status, sepsis. Differential Diagnosis: CVA, electrolyte abnormality, hypoglycemia, intracranial bleed, pneumonia, sepsis, TIA, UTI, volume depletion. The patient's Wells Deep Vein Thrombosis Score was calculated as follows: Total Score: 0-2 Pts- Low Risk. The patient's pulmonary embolism risk score was calculated as follows: Total Score: 0-2 points. This patient was found to be at low risk for a pulmonary embolism by using the Well's assessment criteria. Immunization status: Influenza vaccine: Data reviewed: vital signs, nurses notes, lab test result(s), EKG, radiologic studies, CT scan, plain films. Data interpreted: panel monitor: rate is 81 beats/min, rhythm is regular, Pulse oximetry: on room air is 91 %. Test interpretation: by ED physician or midlevel provider: ECG, plain radiologic studies. 10/19 11:54 Order name: Basic Metabolic Panel; Complete Time: 13:41 [facility] 10/19 11:54 Order name: CBC with Diff; Complete Time: 13:53 sobeida 10/19 11:54 Order name: LFT's; Complete Time: 13:41 sobeida 10/19 11:54 Order name: Magnesium; Complete Time: 13:41 sobeida 10/19 11:54 Order name: NT PRO-BNP; Complete Time: 13:41 [facility] 10/19 11:54 Order name: PT-INR; Complete Time: 13:41 [facility] 10/19 11:54 Order name: Troponin (emerg Dept Use Only); Complete Time: 13:41 sobeida 10/19 11:54 Order name: Lactate; Complete Time: 13:41 [facility] 10/19 11:54 Order name: Procalcitonin; Complete Time: 13:41 [facility] 10/19 11:58 Order name: COVID-19 : Document "Date of Symptom Onset" if Symptomatic. [facility] 10/19 11:59 Order name: ABG; Complete Time: 13:41 [facility] 10/19 12:29 Order name: CBC Smear Scan; Complete Time: 13:53 EDCT 10/19 13:27 Order name: SARS-COV-2 RT PCR; Complete Time: 13:41 EDCT 10/19 11:54 Order name: XRAY Chest (1 view); Complete Time: 13:41 sobeida 10/19 11:54 Order name: CT Traumagram (Head C Spine CAP wo con); Complete Time: 15:02 sobeida 10/19 13:37 Order name: Urine Microscopic Only; Complete Time: 15:02 bp 10/19 13:42 Order name: Type And Screen [facility] 10/19 13:45 Order name: Urine Dipstick-Ancillary; Complete Time: 13:53 EDCT 10/19 14:01 Order name: Urine Culture [facility] 10/19 14:33 Order name: Echo with Doppler EDCT 10/19 14:34 Order name: Echo with Doppler [facility] 10/19 14:35 Order name: AMMONIA [facility] 10/19 15:45 Order name: Lactate Sepsis 2 HR Follow-up [facility] 10/19 16:21 Order name: CBC with Automated Diff [facility]CT 10/19 16:21 Order name: Comprehensive Metabolic Panel [facility] 10/19 16:21 Order name: Magnesium [facility] 10/19 11:54 Order name: EKG; Complete Time: 11:55 sobeida 10/19 11:54 Order name: Cardiac monitoring; Complete Time: 12:33 10/19 11:54 Order name: EKG - Nurse/Tech; Complete Time: 14:04 10/19 11:54 Order name: IV Saline Lock; Complete Time: 12:33 10/19 11:54 Order name: Labs collected and sent; Complete Time: 12:33 10/19 11:54 Order name: O2 Per Protocol; Complete Time: 12:33 10/19 11:54 Order name: O2 Sat Monitoring; Complete Time: 12: [facility] 10/19 16:18 Order name: CONS Physician Consult EDMS EC:01 Rate is 81 beats/min. Rhythm is regular. QRS [place] is Normal. [place] interval is prolonged sobeida at 216 msec. QRS interval is normal. QT interval is normal. No Q waves. T waves are Normal. No ST changes noted. Clinical impression: NSR w/ Non-specific ST/T Changes and No evidence of ischemia. Interpreted by me. Reviewed by me. Administered Medications: 03:40 Drug: vancoMYCIN 1 grams Route: IVPB; Infused Over: 2 hrs; Site: PICC; hb 12:00 Drug: NS 0.9% 1000 ml Route: IV; Rate: 1 bolus; Site: PICC; hb 12:32 Follow up: Response: No change in condition; IV Status: Completed infusion; IV Intake: hb 1000ml 12:11 Drug: Levophed (norepinephrine) (4 mg/250 mL D5W 4 mcg/min Route: IV; Rate: calculated hb rate; Site: PICC; 12:20 Drug: NS 0.9% 1000 ml Route: IV; Rate: 1 bolus; Site: PICC; hb 12:44 Follow up: Response: No adverse reaction; IV Status: Completed infusion; IV Intake: hb 1000ml 12:40 Drug: ProTONIX (pantoprazole) 40 mg Route: IVP; Site: PICC; hb 13:05 Follow up: Response: No adverse reaction hb 13:00 Drug: Zofran (Ondansetron) 4 mg Route: IVP; Site: PICC; hb 13:56 Follow up: Response: No adverse reaction hb 13:00 Drug: Versed (midazolam) 4 mg Route: IVP; Site: PICC; hb 13:56 Follow up: Response: No adverse reaction hb 13:07 Drug: fentaNYL (PF) 25 mcg Route: IVP; Site: PICC; hb 13:56 Follow up: Response: No adverse reaction hb 13:40 Drug: Cefepime 2 grams Route: IVPB; Rate: 200 ml/hr; Infused Over: 30 mins; Site: PICC; hb 14:07 Follow up: Response: No adverse reaction; IV Status: Completed infusion; IV Intake: 20mlhb 13:40 Drug: NS 0.9% 1000 ml Route: IV; Rate: 125 ml/hr; Site: PICC; hb 14:04 Drug: Vitamin K1 (phytonadione) 10 mg Route: Sub-Q; Site: right upper arm; hb 15:33 Follow up: Response: No adverse reaction hb Disposition Summary: 10/19/20 14:01 Hospitalization Ordered Hospitalization Status: Inpatient Admission sobeida Provider: Ezra Scruggs cha Location: Intensive Care Unit sobeida Condition: Stable sobeida Problem: new sobeida Symptoms: are unchanged sobeida Bed/Room Type: Standard sobeida Room Assignment: ER - 10(10/19/20 16:26) dw Diagnosis - Acute kidney failure, unspecified - on chronic sobeida - Pleural effusion, not elsewhere classified sobeida - Severe sepsis with septic shock sobeida - Hypotension, unspecified sobeida - Anemia, unspecified sobeida - Other cirrhosis of liver sobeida - Unspecified combined systolic (congestive) and diastolic (congestive) heart failure sobeida - Other ascites sobeida - Hyperkalemia sobeida Forms: - Medication Reconciliation Form sobeida - SBAR form sobeida Signatures: Dispatcher [employer] EDMS Kaylin Krishna RN RN dw Anderson, Corey, MD MD cha Baxter, Heather, RN RN Corrections: (The following items were deleted from the chart) 12:34 11:59 CORONAVIRUS ordered. EDMS EDMS 16:26 14:01 sobeida flynn
[2020-10-19] MEDS ORDERED: VITAMIN K (ADULT) 10 MG/ML ONE ×2 (14:21→18:39)
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
[2020-10-19] MEDS ORDERED: NOREPINEPHRINE 8 MG in D5W 250 ML IV PRN ×2 (15:34→17:59)
[2020-10-19] MEDS ORDERED: MORPHINE 2 MG/ML SYR IV PRN (16:15)
[2020-10-19] MEDS ORDERED: ONDANSETRON 4 MG/2 ML VIAL IV PRN (16:15)
[2020-10-19] MEDS ORDERED: NOREPINEPHRINE 4 MG in D5W 250 ML IV PRN (16:19)
[2020-10-19] MEDS ORDERED: NA CHLORIDE 0.9% 1,000 ML IV SCH (17:00)
[2020-10-19] MEDS ORDERED: PIPER/TAZO/NS 2.25gm 2.25 GM/50 ML BAG IVPB SCH (17:00)
[2020-10-19] MEDS ORDERED: Levofloxacin500mg IV 500 MG/100 ML BAG IV ONE ×2 (17:00→17:21)
[2020-10-19] MEDS ORDERED: Pharmacy Consult 1 EA XX PRN (17:05)
--- NOTE | 2020-10-19 17:05 | P.CNS ---
Date of Consult: 10/19/20 (TV) Reason for Consult: Shock and resp failure Chief Complaint: Resp failure and shock History of Present Illness: Age 65 AW shock , resp failure intubated. progressive SOB Allergies No Known Allergies Allergy (Unverified 10/19/20 15:38) Review of Systems is unable to be obtained Physical Examination General: Comatose Laboratory Data (last 24 hrs) 10/19/20 12:00: PT 27.3 H, INR 2.35 10/19/20 12:00: WBC 10.20, Hgb 8.7 L, Hct 27.5 L, Plt Count 95 L 10/19/20 12:00: Sodium 139, Potassium 5.2 H, BUN 99 H, Creatinine 2.72 H, Glucose 98, Magnesium 2.1, Total Bilirubin 1.8 H, AST 858 H*, ALT 210 H, Alkaline Phosphatase 160 H - Problems (1) Shock Current Visit: Yes Status: Acute Plan: Age 65 Aw resp failure and raul. Left sided effusion, ARF, PENITENTIARY,MOD/ hypoxic metab acidosis. Multilocualted effusionon the R , Ascites Cirrhosis of liver, IVF, Broead spectrum AB/ Bedside thoracentesis
[2020-10-19] MEDS ORDERED: ALBUMIN HUMAN 25% 100 ML IV ONE (17:21)
[2020-10-19] MEDS ORDERED: VITAMIN K (ADULT) 10 MG/ML IVP ONE (18:00)
[2020-10-19] MEDS: NA CHLORIDE 0.9% 1,000 ML IV SCH ×2 (18:00→22:37)
[2020-10-19] MEDS: ALBUMIN HUMAN 25% 100 ML IV SCH (18:06)
[2020-10-19] MEDS: THIAMINE 200 MG/2 ML INJ IVP SCH (18:20)
[2020-10-19] MEDS ORDERED: THIAMINE 200 MG/2 ML INJ ONE (18:39)
--- NOTE | 2020-10-19 18:40 | RAD REPORT ---
EXAM DESCRIPTION: RAD - Chest Single View - 10/19/2020 6:16 pm CLINICAL HISTORY: PICC placement COMPARISON: Chest Single View dated 10/19/2020 FINDINGS: Right subclavian approach PICC placement with tip overlying the superior cavoatrial juncti on. Cardiomegaly. Again noted are bilateral pleural effusions and pulmonary edema. Endotracheal tube above the tesfaye in satisfactory position. The NG tube goes below level diaphragm through IMPRESSION: Right subclavian approach PICC with tip in satisfactory position. Edema and pleural effu sions again noted. The remaining support apparatus is in similar/satisfactory position.
[2020-10-19 18:44] LABS: Absolute Lymphocytes (CBC) 0.2 K/uL (0.7-4.9); Basophils % 0.1 % (0-1.3); Hematocrit 30.7 % (39.6-49.0); Lymphocytes % 1.5 % (15.3-44.8); RBC Red Blood Cell Count 3.33 M/uL (4.33-5.43)
[2020-10-19 19:03] LABS: Anisocytosis 3+; Blood Morphology Comment NOTED (NOT SEEN); Platelet Estimate DECR; White Blood Cell Scan OK (OK)
[2020-10-19] MEDS: PIPER/TAZO/NS 2.25gm 2.25 GM/50 ML BAG IVPB SCH (19:14)
[2020-10-19 19:18] VITALS: BMI 25.1
[2020-10-19 19:28] LABS: Albumin 1.8 g/dL (3.4-5.0); Bilirubin Total 1.8 mg/dL (0.2-1.0); Magnesium 1.9 mg/dL (1.8-2.4); Potassium 4.9 mmol/L (3.5-5.1); Protein, Total 6.1 g/dL (6.4-8.2)
[2020-10-19] MEDS: HYDROCORTISONE NA SUC 200 MG in NA CHLORIDE 0.9% 100 ML IV SCH (20:28)
[2020-10-19] MEDS ORDERED: VANCOMYCIN 2 GM in NA CHLORIDE 0.9% 500 ML IVPB ONE (21:00)
[2020-10-20] MEDS: PIPER/TAZO/NS 2.25gm 2.25 GM/50 ML BAG IVPB SCH ×4 (00:25→18:38)
[2020-10-20 05:41] LABS: Absolute Lymphocytes (CBC) 0.1 K/uL (0.7-4.9); Basophils % 0.2 % (0-1.3); Hematocrit 30.2 % (39.6-49.0); Lymphocytes % 1.5 % (15.3-44.8); MPV 9.4 fL (7.6-11.3)
[2020-10-20 06:09] LABS: Albumin 2.1 g/dL (3.4-5.0); Bilirubin Total 1.8 mg/dL (0.2-1.0); Potassium 4.9 mmol/L (3.5-5.1); Protein, Total 6.2 g/dL (6.4-8.2)
[2020-10-20 06:19] LABS: Protime INR 2.03
[2020-10-20] MEDS: NA CHLORIDE 0.9% 1,000 ML IV SCH ×3 (06:32→19:11)
[2020-10-20 06:33] LABS: Arterial Blood Carboxyhemoglob 1.9 % (0-1.5); Blood Gas Oxyhemoglobin 96.4 % (94-97); Blood O2 Saturation 99.2 % (92-98.5)
[2020-10-20] MEDS ORDERED: NA CHLORIDE 0.9% 1,000 ML ONE ×2 (06:54→09:46)
--- NOTE | 2020-10-20 06:55 | P.HP ---
Certification for Inpatient Patient admitted to: Inpatient With expected LOS: >2 Midnights Patient will require the following post-hospital care: None Practitioner: I am a practitioner with admitting privileges, knowledge of patient current condition, hospital course, and medical plan of care. Services: Services provided to patient in accordance with Admission requirements found in Title 42 Section 412.3 of the Code of Federal Regulations Patient History Date of Service: 10/19/20 Reason for admission: Resp failure and shock History of Present Illness: Patient is a 65-year-old gentleman who came to the hospital who was found by his unresponsive. Patient has multiple medical problems including a history of cirrhosis. He is not really compliant with taking care of himself. when EMS arrived he was found hypotensive with systolic blood pressures in the 50s. Room air O2 sats were 40s. Blood sugar was also low. Patient was brought into the emergency room and patient was intubated on route. In the emergency room patient workup suggested he was septic. Patient was started on vasopressors. Emergency room physician spoke to the patient's and she did not want any further aggressive measures performed. She wanted to keep patient intubated and only wanted to use the Levophed that we were using but did not want a use any additional vasopressors as needed. At this time, will continue treatment for septic shock in get a stat echocardiogram. Patient has bilateral pleural effusions and in the setting of cirrhosis on once we get an echocardiogram will be difficult know if this effusion is from cirrhosis or from heart failure. Otherwise, will admit to the ICU in Consult Pulmonary and await echocardiogram. Allergies No Known Allergies Allergy (Unverified 10/19/20 15:38) Home Medications: Albuterol Inhaler [Ventolin Inhaler*] 3 ml IH Q4H 10/19/20 Ensure Enlive 237 ml PO TID 10/19/20 Fluconazole [Diflucan] 200 mg PO DAILY 10/19/20 Ipratropium/Albuterol Sulfate [Iprat-Albut 0.5-3(2.5) mg/3 ml] 3 ml IH Q4HR 10/19/20 Iron/FA/Vit B-Com W/C [Hemocyte Plus] 1 tab PO BID 10/19/20 Lactulose 20 gm PO BID 10/19/20 Meropenem [Merrem] 500 mg IV Q8HR 10/19/20 Metoprolol Tartrate [Lopressor] 25 mg PO BID 10/19/20 Midodrine HCl 2.5 mg PO TID 10/19/20 Multivitamin 1 each PO DAILY 10/19/20 Pantoprazole Granules [Protonix Packet (for suspension)] 40 mg PO DAILY 10/19/20 Tamsulosin HCl [Flomax] 1 tab PO DAILY 10/19/20 Thiamine HCl 100 mg PO DAILY 10/19/20 predniSONE [Prednisone] 20 mg PO DAILY 10/19/20 - Past Medical/Surgical History Has patient received pneumonia vaccine in the past: Yes -: cirrhosis -: thoracentesis -: ascities -: HTN -: testicular CA -: brain infection -: AMS -: removed testical -: lymphnodes removed- -: spleen sx not removed -: brain sx 2009 - Family History Mother History Unknown: Yes Medical History: Heart disease, Hypertension - Social History Smoking Status: Former smoker Alcohol use: Yes CD- Drugs: No Place of Residence: Home Review of Systems is unable to be obtained Physical Examination - Vital Signs Temperature: 97.4 F Blood Pressure: 106/62 Pulse: 56 Respirations: 14 Pulse Ox (%): 100 - Physical Exam General: Other (Intubated and sedated) HEENT: Atraumatic, Normocephalic Neck: Supple Respiratory: Crackles/rales, Expiratory wheezes Cardiovascular: Regular rate/rhythm, Normal S1 S2, Systolic murmur Gastrointestinal: Normal bowel sounds, Soft and benign, Non-distended Musculoskeletal: No clubbing, Swelling Neurological: Cranial nerves 3-12 intact, Abnormal strength, Abnormal sensation Lymphatics: No axilla or inguinal lymphadenopathy - Studies Laboratory Data (last 24 hrs) 10/19/20 12:00: PT 27.3 H, INR 2.35 10/19/20 12:00: WBC 10.20, Hgb 8.7 L, Hct 27.5 L, Plt Count 95 L 10/19/20 12:00: Sodium 139, Potassium 5.2 H, BUN 99 H, Creatinine 2.72 H, Glucose 98, Magnesium 2.1, Total Bilirubin 1.8 H, AST 858 H*, ALT 210 H, Alkaline Phosphatase 160 H Assessment & Plan - Problems (Diagnosis) (1) Septic shock Current Visit: Yes Status: Acute (2) Liver cirrhosis Current Visit: Yes Status: Acute (3) Acute kidney injury Current Visit: Yes Status: Acute (4) Hypoalbuminemia Current Visit: Yes Status: Acute (5) Anemia Current Visit: Yes Status: Acute (6) Pleural effusion Current Visit: Yes Status: Acute (7) Ascites Current Visit: Yes Status: Acute - Plan Plan: 1. Broad-spectrum antibiotic coverage 2. Pulmonary consultation/ patient was pleural effusion 3. Nephrology consultation 4. Will try to get paracentesis scheduled 5. IV albumin 6. Echocardiogram 7. Gentle hydration 8. Continue vasopressor support 9. Continue mechanical ventilation support 10. Monitor neurologic status-check ammonia level, could be related to uremic e ncephalopathy, could be related to acute CVA 11. Abdominal ultrasound 12. Family does not want any aggressive measures at this time. May need to do thoracentesis for diagnosis purposes as was paracentesis and will speak with Pulmonary. Unable to take 2 Radiology to get this done so may need to do this at bedside 13. GI and DVT prophylaxis Discharge Plan: Other Plan to discharge in: Greater than 2 days - Advance Directives Does patient have a Living Will: Yes Does patient have a Durable POA for Healthcare: No - Code Status/Comfort Care Code Status Assessed: Yes Code Status: Do Not Attempt Resuscitat Critical Care: Yes Time Spent Managing PTS Care (In Minutes): 60
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
--- NOTE | 2020-10-20 09:28 | RAD REPORT ---
EXAM DESCRIPTION: US - Abdomen Exam Complete - 10/20/2020 8:28 am CLINICAL HISTORY: Abdominal pain COMPARISON: none FINDINGS: Small to moderate right pleural effusion. Moderate ascites. A cirrhotic small liver. Small hepatic cysts. Echogenic foci within the gallbladder. Posterior shadowing is not seen. Asymmetric gallbladder wall t hickening. Limited evaluation of the right kidney. The left kidney measures 10 centimeters with a normal echotexture. The spleen measures 15 centimeters. Limited evaluation of pancreas, IVC and abdominal aorta secondary to overlying bowel gas. IMPRESSION: Cirrhosis Echogenic foci within the gallbladder may represent sludge balls or stones which did not shadow secon christie to technical factors. Asymmetric gallbladder wall thickening. Follow-up ultrasound in 6 months is recommended for re-evalua tion
[2020-10-20] MEDS: THIAMINE 200 MG/2 ML INJ IVP SCH (09:45)
[2020-10-20] MEDS: HYDROCORTISONE NA SUC 200 MG in NA CHLORIDE 0.9% 100 ML IV SCH ×2 (09:45→20:07)
[2020-10-20] MEDS ORDERED: THIAMINE 200 MG/2 ML INJ ONE (09:46)
[2020-10-20] MEDS: Levofloxacin 250mg IV 250 MG/50 ML BAG IV SCH (10:36)
[2020-10-20] MEDS: ALBUMIN HUMAN 25% 100 ML IV SCH (11:01)
[2020-10-20] MEDS ORDERED: FUROSEMIDE 40 MG/4 ML VIAL IV ONE (11:52)
[2020-10-20 12:56] LABS: Urine Appearance CLOUDY (Clear); Urine Bilirubin NEGATIVE (Negative); Urine Blood 3+ (Negative); Urine Color YELLOW (Yellow); Urine Glucose NEGATIVE (Negative); Urine Protein 1+ (Negative); Urine Specific Gravity 1.015 (1.005-1.030); Urine Urobilinogen 0.2 mg/dL (0.2-1.0); Urine pH 5.5 (5.0-7.0)
[2020-10-20 13:00] LABS: Urine Microscopic Reflex ORDER UMIC
[2020-10-20] MEDS ORDERED: FUROSEMIDE 40 MG/4 ML VIAL ONE (13:04)
[2020-10-20 13:12] LABS: Urine Bacteria <20 /HPF (NONE SEEN); Urine Mucus 1+ /HPF (NONE SEEN)
[2020-10-20] MEDS ORDERED: LIDOCAINE 1% MPF 30 ML VIAL ONE (13:34)
[2020-10-20] MEDS ORDERED: LIDOCAINE 1% MPF 5 ML VIAL ONE (13:34)
[2020-10-20] MEDS ORDERED: HYDROCORTISONE SUC 100 MG INJ ONE (20:09)
[2020-10-20] MEDS ORDERED: NA CHLORIDE 0.9% 100 ML ONE (20:10)
[2020-10-20] MEDS ORDERED: NA CHLORIDE 0.9% 1,000 ML IV SCH (21:43)
[2020-10-20 23:47] LABS: Urine Protein/Creatinine Ratio 1.74 ratio (<0.15)
[2020-10-21] MEDS: PIPER/TAZO/NS 2.25gm 2.25 GM/50 ML BAG IVPB SCH ×2 (00:28→10:00)
[2020-10-21 05:07] LABS: Arterial Blood Carboxyhemoglob 1.9 % (0-1.5); Blood Gas Oxyhemoglobin 91.6 % (94-97); Blood O2 Saturation 94.4 % (92-98.5)
[2020-10-21 05:08] LABS: Absolute Lymphocytes (CBC) 0.1 K/uL (0.7-4.9); Basophils % 0.6 % (0-1.3); Hematocrit 26.7 % (39.6-49.0); Lymphocytes % 1.6 % (15.3-44.8); MPV 9.1 fL (7.6-11.3); RBC Red Blood Cell Count 2.97 M/uL (4.33-5.43)
[2020-10-21 05:12] LABS: Protime INR 2.29
[2020-10-21 05:23] LABS: Magnesium 1.9 mg/dL (1.8-2.4); Phosphorus 8.5 mg/dL (2.5-4.9)
[2020-10-21 05:55] LABS: Albumin 2.1 g/dL (3.4-5.0); Bilirubin Total 1.4 mg/dL (0.2-1.0); Potassium 4.8 mmol/L (3.5-5.1); Protein, Total 6.2 g/dL (6.4-8.2)
--- NOTE | 2020-10-21 07:41 | RAD REPORT ---
EXAM DESCRIPTION: RAD - Chest Single View - 10/21/2020 7:08 am CLINICAL HISTORY: Resp failure COMPARISON: Chest Single View dated 10/19/2020; Chest Single View dated 10/19/2020; Abdomen Exam Compl ete dated 10/20/2020 FINDINGS: Support apparatus including endotracheal tube, right subclavian approach PICC, and enteric tube are in stable positioning. Bilateral pleural effusions. No fractures are identified. Cardiomega ly. IMPRESSION: Similar aeration of the lungs with pleural effusions and likely pulmonary edema. Support apparatus in stable positioning.
[2020-10-21] MEDS ORDERED: VANCOMYCIN 1.5 GM in NA CHLORIDE 0.9% 500 ML IVPB SCH (09:00)
[2020-10-21] MEDS: Levofloxacin 250mg IV 250 MG/50 ML BAG IV SCH (09:31)
[2020-10-21] MEDS: THIAMINE 200 MG/2 ML INJ IVP SCH (09:32)
[2020-10-21] MEDS ORDERED: THIAMINE 200 MG/2 ML INJ ONE (09:50)
--- NOTE | 2020-10-21 12:28 | P.PN ---
Subjective Date of Service: 10/21/20 Chief Complaint: Resp failure Subjective: Improving (Imrpoving alert/ Not requiring much sedation) Review of Systems is unable to be obtained Physical Examination - Vital Signs Temperature: 97.9 F Blood Pressure: 107/67 Pulse: 61 Respirations: 15 Pulse Ox (%): 100 - Physical Exam General: Alert - Studies Microbiology Data (last 24 hrs): 10/19/20 13:40 Clean Catch Urine [place] Count - Final <10,000 CFU/ML. 10/19/20 13:40 Clean Catch Urine - Final MIXED DANIEL. Assessment & Plan - Problems (Diagnosis) (1) Respiratory failure Current Visit: Yes Status: Acute Plan: Mcuh better/ Shoc resolved/ renal function is worse/ CXRY improved/ LFT improving/ ABG satisfacory. Tolerating SBT/ poss wean and Extubated today/ DC Zosyn. ESLD with ascites and Cirrhosis
--- NOTE | 2020-10-21 15:13 | P.PN ---
Subjective Date of Service: 10/21/20 Chief Complaint: Resp failure Subjective 65M w/ PMHx of HCV liver cirrhosis, CKD Cr 1.5 pt was unresponsive and brought to the hospital . pt was hypotensive, intubated and started on Levophed , LFT >1000 Today UO improving will start on lasix will start on Bicarb drip no indication for renal replacement therapy at this time Physical exam general: intubated and thin Neck; Supple, No elevated JVD hear: RRR, normal S1,2 no murmur or rub Chest: CTAB, no rlaes or wheezes Abdomen: Soft , Nt Extremities feet dressed, foul smell A/P RAMIRO 2/2 ischemic ATN +/- HRS1/2 Cr 1.5 last Month Abd US showed unremarkable KUB no acute indication for renal replacement therapy at this time I discussed with daughter at bedside that considering pt prognosis , low platelet and overall medical condition , the risk of HD are outweigh the benefit , but we can consider a trail of HD , if Bun or cr cont to trend up avoid NSAID and contrast will start on midodrine # Shock likely distributive/septic, unclear source Abdominal tap pending, for ascitic fluid analysis MAP goal > 70 F/U cultures # HCV liver cirrhosis shocked liver on presentation , LFT improving now Currently also has ischemic hepatitis +/- ETOH hepatitis F/u serum AFP Serum ammonia level wnl Mngt per primary team #Anemia, thrombocytopenia Check LDH, haptoglobin to assess for TMA # Combined respi & metabolic acidosis will start on Bicarb drip Pulmonary edema will start on LAsix prognosis guarded Physical Examination - Vital Signs Temperature: 97.9 F Blood Pressure: 108/62 Pulse: 110 Respirations: 32 Pulse Ox (%): 99 - Studies Microbiology Data (last 24 hrs): 10/19/20 13:40 Clean Catch Urine [place] Count - Final <10,000 CFU/ML. 10/19/20 13:40 Clean Catch Urine - Final MIXED DANIEL.
[2020-10-21] MEDS: FUROSEMIDE 40 MG/4 ML VIAL IV SCH ×2 (15:34→20:38)
[2020-10-21] MEDS ORDERED: FUROSEMIDE 40 MG/4 ML VIAL ONE ×2 (15:54→20:23)
[2020-10-21] MEDS: D5W 1,000 ML with NA BICARB 8.4% 150 MEQ IV SCH ×2 (15:58)
[2020-10-21] MEDS: MIDODRINE HCL 5 MG TABLET PO SCH ×2 (15:58→20:39)
[2020-10-21] MEDS: VANCOMYCIN 1.5 GM in NA CHLORIDE 0.9% 500 ML IVPB SCH (21:59)
--- NOTE | 2020-10-22 07:41 | P.PN ---
Subjective Date of Service: 10/20/20 Patient remains intubated. Patient is currently looking a little bit better. More awake and alert. Spoke to patient regarding hemodialysis with his present. He seemed to be following commands appropriately. He remains intubated but when asking him if he wanted dialysis if necessary he nodded his head in agreement. Will continue monitoring renal function closely. Will get consent for diagnostic paracentesis as well. Review of Systems 10-point ROS is otherwise unremarkable Physical Examination - Vital Signs Temperature: 97 F Blood Pressure: 135/78 Pulse: 67 Respirations: 11 Pulse Ox (%): 100 - Physical Exam General: Alert, Other (Intubated but awake and following commands) Respiratory: Diminished, Crackles/rales Cardiovascular: Regular rate/rhythm, Normal S1 S2, No murmurs Gastrointestinal: Normal bowel sounds, Soft and benign, No tenderness, Distended (Patient remains slightly distended) Musculoskeletal: No clubbing, No swelling, No tenderness Neurological: Sensation intact, Cranial nerves 3-12 intact - Studies Microbiology Data (last 24 hrs): 10/19/20 13:40 Clean Catch Urine [place] Count - Final <10,000 CFU/ML. 10/19/20 13:40 Clean Catch Urine - Final MIXED DANIEL. Medications List Reviewed: Yes Assessment & Plan - Problems (Diagnosis) (1) Septic shock Current Visit: Yes Status: Acute (2) Liver cirrhosis Current Visit: Yes Status: Acute (3) Acute kidney injury Current Visit: Yes Status: Acute (4) Hypoalbuminemia Current Visit: Yes Status: Acute (5) Anemia Current Visit: Yes Status: Acute (6) Pleural effusion Current Visit: Yes Status: Acute (7) Ascites Current Visit: Yes Status: Acute - Plan Plan: Continue with plan of care as mentioned below: 1. Continue with broad-spectrum antibiotic coverage 2. Pulmonary consultation/patient with loculated pleural effusion and will continue to monitor. May get thoracentesis 3. Nephrology consultation appreciated 4. Will try to get diagnostic paracentesis scheduled 5. IV albumin as needed 6. Echocardiogram pending 7. Gentle hydration 8. Continue vasopressor support; weaning down and may be able to get off today 9. Continue mechanical ventilation support 10. Monitor neurologic status-check ammonia level, could be related to uremic encephalopathy, could be related to acute CVA 11. Abdominal ultrasound pending 12. Family does not want any aggressive measures at this time. May need to do thoracentesis for diagnosis purposes as well as paracentesis and will speak with Pulmonary. 13. GI and DVT prophylaxis Discharge Plan: Home Plan to discharge in: Greater than 2 days - Advance Directives Does patient have a Living Will: No Does patient have a Durable POA for Healthcare: No - Code Status/Comfort Care Code Status: Do Not Attempt Resuscitat Critical Care: Yes Time Spent Managing PTS Care (In Minutes): 50
--- NOTE | 2020-10-22 07:57 | P.PN ---
Date of Service: 10/21/20 Subjective Patient is doing much better. Weaning off the ventilator at this time. Review of Systems 10-point ROS is otherwise unremarkable Physical Examination - Vital Signs reviewed - Physical Exam General: Alert, Intubated but awake and following commands Respiratory: Basilar crackles Cardiovascular: Regular rate/rhythm, Normal S1 S2, No murmurs Gastrointestinal: Normal bowel sounds, Soft and benign, No tenderness, Distended (Patient remains slightly distended) Musculoskeletal: No clubbing, No swelling, No tenderness Neurological: Sensation intact, Cranial nerves 3-12 intact Assessment & Plan - Problems (Diagnosis) (1) Septic shock Current Visit: Yes Status: Acute (2) Liver cirrhosis Current Visit: Yes Status: Acute (3) Acute kidney injury Current Visit: Yes Status: Acute (4) Hypoalbuminemia Current Visit: Yes Status: Acute (5) Anemia Current Visit: Yes Status: Acute (6) Pleural effusion Current Visit: Yes Status: Acute (7) Ascites Current Visit: Yes Status: Acute - Plan Plan: Continue with plan of care as mentioned below: 1. Continue with broad-spectrum antibiotic coverage 2. Patient afebrile. Leukocytosis has improved. Continue with current antibiotic coverage. 3. Nephrology consultation appreciated. Spoke with them regarding dialysis and will see how patient does once extubated and talk with patient regarding hemodialysis as he has had a history of noncompliance with treatment of his cirrhosis. 4. Continue monitoring cultures 5. IV albumin as needed 6. Echocardiogram pending 7. Continue with gentle hydration 8. Weaned off vasopressor 9. Continue mechanical ventilation support; plan to extubate later today if continues to do well 10. Patient awake and following commands. Continue to monitor neurologic status closely 11. Abdominal ultrasound with sludge and ascites 12. Family does not want any aggressive measures at this time. Patient remains DNR. However, patient does want to consider dialysis as needed 13. GI and DVT prophylaxis Discharge Plan: Home Plan to discharge in: Greater than 2 days - Advance Directives Does patient have a Living Will: No Does patient have a Durable POA for Healthcare: No - Code Status/Comfort Care Code Status: Do Not Attempt Resuscitat Critical Care: Yes Time Spent Managing PTS Care (In Minutes): 50
[2020-10-22] MEDS: Levofloxacin 250mg IV 250 MG/50 ML BAG IV SCH (09:01)
[2020-10-22] MEDS: FUROSEMIDE 40 MG/4 ML VIAL IV SCH ×2 (09:03→22:24)
[2020-10-22] MEDS: THIAMINE 200 MG/2 ML INJ IVP SCH (09:04)
[2020-10-22] MEDS: MIDODRINE HCL 5 MG TABLET PO SCH ×3 (09:04→22:31)
[2020-10-22] MEDS ORDERED: FUROSEMIDE 20 MG/ 2ML VIAL ONE (09:12)
[2020-10-22] MEDS ORDERED: THIAMINE 200 MG/2 ML INJ ONE (09:12)
[2020-10-22] MEDS ORDERED: FUROSEMIDE 40 MG/4 ML VIAL ONE (09:25)
[2020-10-22 09:31] LABS: Absolute Lymphocytes (CBC) 0.1 K/uL (0.7-4.9); Basophils % 0.1 % (0-1.3); Hematocrit 23.3 % (39.6-49.0); Lymphocytes % 1.8 % (15.3-44.8); MPV 8.7 fL (7.6-11.3); RBC Red Blood Cell Count 2.64 M/uL (4.33-5.43)
[2020-10-22 10:02] LABS: Albumin 1.9 g/dL (3.4-5.0); Bilirubin Total 1.4 mg/dL (0.2-1.0); Potassium 3.7 mmol/L (3.5-5.1)
[2020-10-22] MEDS ORDERED: CALCIUM GLUC 10% INJ 9.3 MEQ in NA CHLORIDE 0.9% 100 ML IV ONE (11:00)
--- NOTE | 2020-10-22 13:46 | RAD REPORT ---
EXAM DESCRIPTION: RAD - Chest Single View - 10/22/2020 1:34 pm CLINICAL HISTORY: pleural effusion Chest pain. COMPARISON: Chest Single View dated 10/21/2020; Chest Single View dated 10/19/2020; Chest Single View dated 10/19/2020 FINDINGS: Portable technique limits examination quality. Moderate the large right pleural effusion is seen appearing increased in size since yesterday's exami nation. The heart is moderately enlarged. Right-sided PICC line is unchanged in position. IMPRESSION: Moderate to large right pleural effusion appears increased since yesterday's study.
--- NOTE | 2020-10-22 14:23 | P.PN ---
Subjective Date of Service: 10/22/20 Chief Complaint: Resp failure Subjective 65M w/ PMHx of HCV liver cirrhosis, CKD Cr 1.5 pt was unresponsive and brought to the hospital . pt was hypotensive, intubated and started on Levophed , LFT >1000 Today CXR with Rt pleural effusion will cont lasix Bun>100, pt will require renal replacement therapy, pt declined dialysis if needed, I also had long discussion with over the phone [phone] Physical exam general: extubated , alert Neck; Supple, No elevated JVD hear: RRR, normal S1,2 no murmur or rub Chest: CTAB, no rlaes or wheezes Abdomen: Soft , Nt Extremities feet dressed, foul smell A/P RAMIRO 2/2 ischemic ATN +/- HRS1/2 Cr 1.5 last Month Abd US showed unremarkable KUB no acute indication for renal replacement therapy at this time I discussed with daughter at bedside that considering pt prognosis , low platelet and overall medical condition , the risk of HD are outweigh the benefit pt declined dialysis if needed, I also had long discussion with over the phone [phone] avoid NSAID and contrast on midodrine # Shock likely distributive/septic, unclear source Abdominal tap pending, for ascitic fluid analysis MAP goal > 70 F/U cultures # HCV liver cirrhosis shocked liver on presentation , LFT improving now Currently also has ischemic hepatitis +/- ETOH hepatitis F/u serum AFP Serum ammonia level wnl Mngt per primary team #Anemia, thrombocytopenia Check LDH, haptoglobin to assess for TMA # Combined respi & metabolic acidosis will start on Bicarb drip Pulmonary edema on LAsix prognosis guarded Physical Examination - Vital Signs Temperature: 97.8 F Blood Pressure: 123/80 Pulse: 76 Respirations: 25 Pulse Ox (%): 100 - Studies Medications List Reviewed: Yes
[2020-10-22] MEDS: D5W 1,000 ML with NA BICARB 8.4% 150 MEQ IV SCH ×2 (15:52)
--- NOTE | 2020-10-22 20:55 | P.PN ---
Date of Service: 10/22/20 Subjective Patient was extubated yesterday. However, patient does not want any aggressive measures. I spoke to an once again about hemodialysis and he does not want this. Does not want any kind of procedures at this time. May be willing to allow was to do a paracentesis so we can diagnosis exactly was going on. He may need a thoracentesis for diagnosis as well. At this time he is not really consenting to these procedures. Review of Systems 10-point ROS is otherwise unremarkable Physical Examination - Vital Signs reviewed - Physical Exam General: Alert, oriented and following commands Respiratory: Basilar crackles Cardiovascular: Regular rate/rhythm, Normal S1 S2, No murmurs Gastrointestinal: Normal bowel sounds, Soft and benign, No tenderness, Distended (Patient remains slightly distended) Musculoskeletal: No clubbing, No swelling, No tenderness Neurological: Sensation intact, Cranial nerves 3-12 intact Assessment & Plan - Problems (Diagnosis) (1) Septic shock Current Visit: Yes Status: Acute (2) Liver cirrhosis Current Visit: Yes Status: Acute (3) Acute kidney injury Current Visit: Yes Status: Acute (4) Hypoalbuminemia Current Visit: Yes Status: Acute (5) Anemia Current Visit: Yes Status: Acute (6) Pleural effusion Current Visit: Yes Status: Acute (7) Ascites Current Visit: Yes Status: Acute - Plan Plan: Continue with plan of care as mentioned below: 1. Continue with broad-spectrum antibiotic coverage 2. Patient afebrile. Leukocytosis has improved. Continue with current antibiotic coverage. 3. Nephrology consultation appreciated. Spoke with them regarding dialysis and at this time patient is refusing hemodialysis. He did mention to me wall on the ventilator and following commands that he nodded yes when I asked him. Currently he is refusing it and he understands that this may limit his life span if he does not get dialyzed and he is okay with that because he does not want any aggressive measures 4. Continue monitoring cultures 5. IV albumin as needed 6. Echocardiogram pending 7. Continue with gentle hydration 8. Patient is currently off of vasopressors and okay to transfer to general medical floor 9. Patient was extubated yesterday and on 2 L oxygen 10. Patient awake and following commands. Patient is was not wanting any aggressive measures. Continue to monitor neurologic status closely 11. Abdominal ultrasound with sludge and ascites 12. Family understands that patient does not really want anything aggressive and want us to abide by his wishes. 13. GI and DVT prophylaxis Discharge Plan: Home Plan to discharge in: Greater than 2 days - Advance Directives Does patient have a Living Will: No Does patient have a Durable POA for Healthcare: No - Code Status/Comfort Care Code Status: Do Not Attempt Resuscitat Critical Care: No Time Spent Managing PTS Care (In Minutes): 30
[2020-10-23 05:41] LABS: Absolute Lymphocytes (CBC) 0.1 K/uL (0.7-4.9); Basophils % 0.7 % (0-1.3); Hematocrit 23.2 % (39.6-49.0); Lymphocytes % 2.4 % (15.3-44.8); MPV 8.1 fL (7.6-11.3); RBC Red Blood Cell Count 2.65 M/uL (4.33-5.43)
--- NOTE | 2020-10-23 05:59 | P.PN ---
Subjective Date of Service: 10/23/20 Primary Care Provider: unknown Chief Complaint: Resp failure Subjective: Other (Poor appetite noted. Patient reports pain.) Physical Examination - Vital Signs Temperature: 97.0 F Blood Pressure: 125/78 Pulse: 77 Respirations: 20 Pulse Ox (%): 96 - Studies Medications List Reviewed: Yes Assessment & Plan Discharge Plan: Other (Home with hospice versus inpatient hospice) Plan to discharge in: 24 Hours Physician Review Additional Text: CT Scan: COMPARISON: No comparisons TECHNIQUE: CT head without contrast. CT cervical spine without contrast with coronal and sagittal reformatted images. CT chest, abdomen and pelvis without contrast with coronal and sagittal reformatted images of the spine. All CT scans are performed using dose optimization technique as appropriate and may include automated exposure control or mA/KV adjustment according to patient size. FINDINGS: CT HEAD WITHOUT CONTRAST: No intracranial hemorrhage, hydrocephalus or extra-axial fluid collection. No areas of brain edema or midline shift. [place] hole in the left frontal calvarium with left frontal lobe cavity and surrounding gliosis. This is presumably postsurgical. Endotracheal tube and orogastric tube noted. The paranasal sinuses and mastoids are clear. The calvarium is intact. CT CERVICAL SPINE WITHOUT CONTRAST: No fracture or subluxation. 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 Multilevel cervical spondylosis is noted. There may be some mild central spinal stenosis at C3-4 and C6-7. Varying degrees of neural foraminal narrowing noted. CT CHEST, ABDOMEN, PELVIS WITHOUT CONTRAST: NOTE: Lack of contrast is a significant limitation in the assessment of trauma related findings. Specifically, solid organ, vascular and bowel evaluation is significantly limited. Loculated moderate-sized right pleural fluid. There is underlying consolidation within both lungs. Debris is present within the trachea on the right side. Small left effusion. Cardiomegaly. Right subclavian approach PICC with tip in the right atrium. Endotracheal tube above the tesfaye. OG tube in the stomach. Large volume of ascites. Cirrhotic liver morphology. Surgical changes along the spleen which is enlarged. The pancreas is not well assessed. Stomach is not well assessed either. Mccord catheter within the bladder. Gas is presumably related to instrumentation. Surgical clips in the retroperitoneum. No hydronephrosis. Atrophic kidneys. Age-indeterminate T11 and T12 compression fractures with approximately 20% loss height anteriorly. Remote appearing sternal fracture. IMPRESSION: 1. Age indeterminate T11 and T12 compression fractures without bony retropulsion. No other evidence of significant acute trauma seen. 2. Cirrhosis with large volume of ascites. 3. Loculated moderate sized right pleural fluid of indeterminate sterility. An empyema cannot be excluded by CT. The underlying lung consolidation may reflect overlying pneumonia, possibly secondary to aspiration. 4. No acute intracranial abnormality. 5. No acute fracture or traumatic malalignment of the cervical spine. ABUS: COMPARISON: none FINDINGS: Small to moderate right pleural effusion. Moderate ascites. A cirrhotic small liver. Small hepatic cysts. Echogenic foci within the gallbladder. Posterior shadowing is not seen. Asymmetric gallbladder wall thickening. Limited evaluation of the right kidney. The left kidney measures 10 centimeters with a normal echotexture. The spleen measures 15 centimeters. Limited evaluation of pancreas, IVC and abdominal aorta secondary to overlying bowel gas. IMPRESSION: Cirrhosis Echogenic foci within the gallbladder may represent sludge balls or stones which did not shadow secondary to technical factors. Asymmetric gallbladder wall thickening. ECHO: MEASUREMENTS (cm) DIASTOLIC (NORMALS) SYSTOLIC (NORMALS) IVSd 1.1 (0.6-1.2) LA Diam 4.2 (1.9-4.0) LVEF 60-65% LVIDd 4.6 (3.5-5.7) LVIDs 2.5 (2.0-3.5) %FS 45% LVPWd 1.1 (0.6-1.2) Ao Diam 3.6 (2.0-3.7) 2 DIMENSIONAL ASSESSMENT: RIGHT ATRIUM: NORMAL LEFT ATRIUM: ENLARGED RIGHT VENTRICLE: NORMAL LEFT VENTRICLE: NORMAL TRICUSPID VALVE: MITRAL VALVE: NORMAL PULMONIC VALVE: NORMAL AORTIC VALVE: NORMAL PERICARDIAL EFFUSION: NONE AORTIC ROOT: NORMAL LEFT VENTRICULAR WALL MOTION: NORMAL DOPPLER/COLOR FLOW: MODERATE TRICUSPID REGURGITATION. COMMENTS: NORMAL LEFT VENTRICULAR EJECTION FRACTION 60-65%. NORMAL WALL MOTION ABNORMALITY. MILD LEFT ATRIAL ENLARGEMENT. Physical Exam: General: Alert, oriented and slight confusion noted. Patient reports pain all over. Respiratory: Clear to auscultation. Currently on 2 L per nasal cannula Cardiovascular: Regular rate/rhythm, Normal S1 S2, No murmurs Gastrointestinal: Normal bowel sounds, Soft and benign, No tenderness, mild ascites noted Musculoskeletal: No clubbing, No swelling, No tenderness, some edema noted to the lower extremities bilateral Neurological: Sensation intact, Cranial nerves 3-12 intact Impression: Septic shock etiology unknown with acute respiratory failure complicated with right loculated pleural effusion Chronic liver cirrhosis likely end-stage Acute on chronic renal disease stage IV Ascites secondary to liver cirrhosis Anemia of chronic disease Chronic thrombocytopenia secondary to liver cirrhosis Dysphagia Back pain with T11/T12 compression fracture Plan: Septic shock etiology unknown with acute respiratory failure complicated with right loculated pleural effusion: Patient currently on 2 L per nasal cannula. Patient was recently extubated. Continue with IV Levaquin and vancomycin. Continue to wean off oxygen. Recheck chest x-ray tomorrow. Had a long discussion with daughter and concerning patient's plan of care. Patient likely requires dialysis but this will be difficult due to his chronic liver cirrhosis, anemia of chronic disease and thrombocytopenia. Other consideration would be hospice. to discuss further with family about hospice. Spoke with nephrology as well. Hospice would be appropriate in his condition. Patient has expressed that he does not want any aggressive measures made. If family is agreeable to hospice will pursue likely inpatient versus home hospice. Continue with IV fluids, IV antibiotic therapy for now. Chronic liver cirrhosis likely end-stage: Continue with treatment at this time. Patient remains on midodrine. Continue with IV Protonix, Lasix, and IV fluids. Acute on chronic renal disease stage IV: Spoke with nephrology. Dialysis recommended but patient has expressed that he does not want any aggressive measures. Nephrology recommends hospice. Ascites secondary to liver cirrhosis: Continue to monitor closely. Patient on Lasix. Paracentesis would be difficult at this time due to thrombocytopenia. Anemia of chronic disease: Maintain hemoglobin above 7.5. Chronic thrombocytopenia secondary to liver cirrhosis: Will monitor platelet count. Patient may require platelets if this decreases. Dysphagia: Speech to evaluate swallowing. Back pain with T11/T12 compression fracture: Will provide medication for pain. Will also provide lidocaine patch. DVT prophylaxis: SCD CODE STATUS: Patient is DNR Advance care [id number] minutes: Family to consider hospice. They will decide within the next 24 hours. Time Spent Managing Pts Care (In Minutes): 55
[2020-10-23 06:05] LABS: Albumin 1.9 g/dL (3.4-5.0); Bilirubin Total 1.5 mg/dL (0.2-1.0); Magnesium 1.9 mg/dL (1.8-2.4); Phosphorus 7.4 mg/dL (2.5-4.9); Potassium 3.1 mmol/L (3.5-5.1)
--- NOTE | 2020-10-23 08:44 | ECHO ---
HEIGHT: 5 ft 11 in WEIGHT: 180 lb 0 oz DATE OF STUDY: 10/20/[address]: Ezra Scruggs MD 2-DIMENSIONAL: YES M.MODE: YES DOPPLER: YES COLOR FLOW: YES TDS: NO PORTABLE: YES DEFINITY: NO BUBBLE STUDY: NO DIAGNOSIS: CONGESTIVE HEART FAILURE CARDIAC HISTORY: CATHERIZATION: SURGERY: PROSTHETIC VALVE: PACEMAKER: MEASUREMENTS (cm) DIASTOLIC (NORMALS) SYSTOLIC (NORMALS) IVSd 1.1 (0.6-1.2) LA Diam 4.2 (1.9-4.0) LVEF 60-65% LVIDd 4.6 (3.5-5.7) LVIDs 2.5 (2.0-3.5) %FS 45% LVPWd 1.1 (0.6-1.2) Ao Diam 3.6 (2.0-3.7) 2 DIMENSIONAL ASSESSMENT: RIGHT ATRIUM: NORMAL LEFT ATRIUM: ENLARGED RIGHT VENTRICLE: NORMAL LEFT VENTRICLE: NORMAL TRICUSPID VALVE: MITRAL VALVE: NORMAL PULMONIC VALVE: NORMAL AORTIC VALVE: NORMAL PERICARDIAL EFFUSION: NONE AORTIC ROOT: NORMAL LEFT VENTRICULAR WALL MOTION: NORMAL DOPPLER/COLOR FLOW: MODERATE TRICUSPID REGURGITATION. COMMENTS: NORMAL LEFT VENTRICULAR EJECTION FRACTION 60-65%. NORMAL WALL MOTION ABNORMALITY. MILD LEFT ATRIAL ENLARGEMENT. TECHNOLOGIST: Holger DAVIS
[2020-10-23] MEDS: FUROSEMIDE 40 MG/4 ML VIAL IV SCH ×2 (09:41→21:00)
[2020-10-23] MEDS: Levofloxacin 250mg IV 250 MG/50 ML BAG IV SCH (09:42)
[2020-10-23] MEDS: THIAMINE 200 MG/2 ML INJ IVP SCH (09:42)
[2020-10-23] MEDS: MIDODRINE HCL 5 MG TABLET PO SCH ×3 (09:43→21:00)
[2020-10-23] MEDS ORDERED: NACHLORIDE 0.45% 1,000 ML with NA BICARB 8.4% 50 MEQ IV SCH ×2 (12:00)
[2020-10-23] MEDS ORDERED: TRAMADOL HCL 50 MG TAB PO PRN (12:37)
[2020-10-23] MEDS ORDERED: HYDROCODONE/APAP 7.5/325 MG TAB PO PRN (12:37)
[2020-10-23] MEDS ORDERED: SODIUM CHLORIDE 0.9% 10ML INJ IV PRN (12:38)
[2020-10-23] MEDS ORDERED: WATER FOR INJ,STERILE 10 ML IV SCH (13:00)
[2020-10-23] MEDS ORDERED: ALTEPLASE 2 MG/VIAL IV SCH (13:00)
--- NOTE | 2020-10-23 15:57 | RAD REPORT ---
EXAM DESCRIPTION: RAD - Barium Swallow Modified - 10/23/2020 3:47 pm CLINICAL HISTORY: speech therapist recommend for possible aspiration Dysphagia, aspiration COMPARISON: Abdomen Exam Complete dated 10/20/2020 TECHNIQUE: The patient was given liquid, semi-solid and solid forms of barium. Lateral view fluorosc opic imaging was performed in conjunction with speech pathology service. FINDINGS: Laryngeal penetration not cleared- Thin, nectar, honey,pudding. Aspiration - No cough with honey. Pharyngeal residue vallecular mod w/all consistencies. pyriform severe w/ all consistencies Absent swallow response Severe residue in esophagus at end of study. Multiple swallows and cued coughs were ineffective. Total fluoroscopy time: 4 minutes and 42 seconds
[2020-10-23 16:36] VITALS: BP 112/74; TEMP 96.9
[2020-10-23 16:59] LABS: Protime INR 2.11
[2020-10-23 17:12] LABS: Potassium 3.2 mmol/L (3.5-5.1)
[2020-10-23] MEDS: VANCOMYCIN 1.5 GM in NA CHLORIDE 0.9% 500 ML IVPB SCH (20:00)
--- NOTE | 2020-10-23 21:03 | PN ---
Date of Progress Note: 10/23/2020 Chief Complaint: Severe acute kidney injury, hepatorenal syndrome. The patient has acute tubular necrosis with nonoliguric urine output. The patient was started on bicarbonate drip for metabolic acidosis. The patient has history of liver cirrhosis. He was found to have thrombocytopenia. He had CT scan of the chest without contrast. Abdomen CT was also done. CT scan of the chest and pelvis without contrast showed moderate right pleural effusion, underlying consolidation with both lungs is present. He has severe hyperazotemia and high BUN and creatinine ratio. He received dialysis and he was discharged to home. In the recent past he came to our hospital and currently he is at [facility]. Review of Systems: Denies fever, chills. Physical Examination: Lungs: Clear to auscultation bilaterally. Heart: S1, S2. Abdomen: Soft, benign. Extremities: No edema. Impression And Plan: The patient has hepatitis C, chronic kidney disease with baseline creatinine level 1.5. The patient came to the hospital because of altered mental status. He was lethargic and hypotensive. He was started on Levophed. Currently, he is hemodynamically stable on midodrine and patient was started on bicarbonate drip and planning to wean him on bicarbonate drip and he will have IV fluids ordered to adjust to current lab results. Impression And Plan: Chronic kidney disease. Abdominal ultrasound show unremarkable KUB. No acute indication for renal replacement therapy at this time, although patient continues to have steady hyperazotemia. The patient may require dialysis in the near future. The patient will need dialysis catheter placed, but platelet count is low. The patient will need the platelet transfusion before catheter procedure can be scheduled. The patient had septic shock, unclear source, further recommendation from primary team. The patient will have paracentesis to rule out spontaneous bacterial peritonitis. Monitor blood pressure. Continue to monitor renal. Continue IV albumin. Overall prognosis is poor. EB/MODL Voice ID: [id number] Report ID: [id number] LARISSA
[2020-10-23 21:47] VITALS: O2SAT 98
--- NOTE | 2020-10-23 22:35 | P.DS ---
Admission Date: 10/19/20 Discharge Date: 10/23/20 Primary Care Provider: unknown Disposition: HOSPICE-MEDICAL FACILITY Discharge Condition: SERIOUS Reason for Admission: Resp failure Consultations: Pulmonology: Dr. Lizama Procedures: CT Scan: COMPARISON: No comparisons TECHNIQUE: CT head without contrast. CT cervical spine without contrast with coronal and sagittal reformatted images. CT chest, abdomen and pelvis without contrast with coronal and sagittal reformatted images of the spine. All CT scans are performed using dose optimization technique as appropriate and may include automated exposure control or mA/KV adjustment according to patient size. FINDINGS: CT HEAD WITHOUT CONTRAST: No intracranial hemorrhage, hydrocephalus or extra-axial fluid collection. No areas of brain edema or midline shift. [place] hole in the left frontal calvarium with left frontal lobe cavity and surrounding gliosis. This is presumably postsurgical. Endotracheal tube and orogastric tube noted. The paranasal sinuses and mastoids are clear. The calvarium is intact. CT CERVICAL SPINE WITHOUT CONTRAST: No fracture or subluxation. 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 Multilevel cervical spondylosis is noted. There may be some mild central spinal stenosis at C3-4 and C6-7. Varying degrees of neural foraminal narrowing noted. CT CHEST, ABDOMEN, PELVIS WITHOUT CONTRAST: NOTE: Lack of contrast is a significant limitation in the assessment of trauma related findings. Specifically, solid organ, vascular and bowel evaluation is significantly limited. Loculated moderate-sized right pleural fluid. There is underlying consolidation within both lungs. Debris is present within the trachea on the right side. Small left effusion. Cardiomegaly. Right subclavian approach PICC with tip in the right atrium. Endotracheal tube above the tesfaye. OG tube in the stomach. Large volume of ascites. Cirrhotic liver morphology. Surgical changes along the spleen which is enlarged. The pancreas is not well assessed. Stomach is not well assessed either. Mccord catheter within the bladder. Gas is presumably related to instrumentation. Surgical clips in the retroperitoneum. No hydronephrosis. Atrophic kidneys. Age-indeterminate T11 and T12 compression fractures with approximately 20% loss height anteriorly. Remote appearing sternal fracture. IMPRESSION: 1. Age indeterminate T11 and T12 compression fractures without bony retropulsion. No other evidence of significant acute trauma seen. 2. Cirrhosis with large volume of ascites. 3. Loculated moderate sized right pleural fluid of indeterminate sterility. An empyema cannot be excluded by CT. The underlying lung consolidation may reflect overlying pneumonia, possibly secondary to aspiration. 4. No acute intracranial abnormality. 5. No acute fracture or traumatic malalignment of the cervical spine. ABUS: COMPARISON: none FINDINGS: Small to moderate right pleural effusion. Moderate ascites. A cirrhotic small liver. Small hepatic cysts. Echogenic foci within the gallbladder. Posterior shadowing is not seen. Asymmetric gallbladder wall thickening. Limited evaluation of the right kidney. The left kidney measures 10 centimeters with a normal echotexture. The spleen measures 15 centimeters. Limited evaluation of pancreas, IVC and abdominal aorta secondary to overlying bowel gas. IMPRESSION: Cirrhosis Echogenic foci within the gallbladder may represent sludge balls or stones which did not shadow secondary to technical factors. Asymmetric gallbladder wall thickening. ECHO: MEASUREMENTS (cm) DIASTOLIC (NORMALS) SYSTOLIC (NORMALS) IVSd 1.1 (0.6-1.2) LA Diam 4.2 (1.9-4.0) LVEF 60-65% LVIDd 4.6 (3.5-5.7) LVIDs 2.5 (2.0-3.5) %FS 45% LVPWd 1.1 (0.6-1.2) Ao Diam 3.6 (2.0-3.7) 2 DIMENSIONAL ASSESSMENT: RIGHT ATRIUM: NORMAL LEFT ATRIUM: ENLARGED RIGHT VENTRICLE: NORMAL LEFT VENTRICLE: NORMAL TRICUSPID VALVE: MITRAL VALVE: NORMAL PULMONIC VALVE: NORMAL AORTIC VALVE: NORMAL PERICARDIAL EFFUSION: NONE AORTIC ROOT: NORMAL LEFT VENTRICULAR WALL MOTION: NORMAL DOPPLER/COLOR FLOW: MODERATE TRICUSPID REGURGITATION. COMMENTS: NORMAL LEFT VENTRICULAR EJECTION FRACTION 60-65%. NORMAL WALL MOTION ABNORMALITY. MILD LEFT ATRIAL ENLARGEMENT. Impression: Septic shock etiology unknown with acute respiratory failure complicated with right loculated pleural effusion Chronic liver cirrhosis likely end-stage Acute on chronic renal disease stage IV Ascites secondary to liver cirrhosis Anemia of chronic disease Chronic thrombocytopenia secondary to liver cirrhosis Dysphagia Back pain with T11/T12 compression fracture Brief History of Present Illness: Patient is a 65-year-old gentleman who came to the hospital who was found by his unresponsive. Patient has multiple medical problems including a history of cirrhosis. He is not really compliant with taking care of himself. when EMS arrived he was found hypotensive with systolic blood pressures in the 50s. Room air O2 sats were 40s. Blood sugar was also low. Patient was brought into the emergency room and patient was intubated on route. In the emergency room patient workup suggested he was septic. Patient was started on vasopressors. Emergency room physician spoke to the patient's and she did not want any further aggressive measures performed. She wanted to keep patient intubated and only wanted to use the Levophed that we were using but did not want a use any additional vasopressors as needed. At this time, will continue treatment for septic shock in get a stat echocardiogram. Patient has bilateral pleural effusions and in the setting of cirrhosis on once we get an echocardiogram will be difficult know if this effusion is from cirrhosis or from heart failure. Otherwise, will admit to the ICU in Consult Pulmonary and await echocardiogram. Hospital Course: Patient was admitted initially to the ICU, intubated on vasopressor therapy for septic shock and respiratory failure, patient initially had improved was able to be extubated, patient was going to require dialysis for worsening renal function, patient had considered additional options for plan of care given patient's complex situation, patient had expressed that he would not want any aggressive measures made. Family was agreeable to hospice, at this time patient will be discharged to inpatient hospice. Vital Signs/Physical Exam: Temp Pulse Resp BP Pulse Ox 96.9 F 86 20 112/74 98 10/23/20 16:00 10/23/20 16:00 10/23/20 16:00 10/23/20 16:00 10/23/20 16:00 General: Oriented x1, Disheveled HEENT: Atraumatic Neck: Supple Respiratory: Diminished Cardiovascular: No edema Capillary refill: <2 Seconds Gastrointestinal: No tenderness, No rebound Musculoskeletal: No contractures, No erythema Integumentary: No significant lesion, No tenderness/swelling, No erythema Neurological: Abnormal speech, Abnormal strength, Abnormal tone Laboratory Data at Discharge: WBC 5.50 K/uL (4.3-10.9) 10/23/20 04:31 Hgb 7.9 g/dL (13.6-17.9) L 10/23/20 04:31 Hct 23.2 % (39.6-49.0) L 10/23/20 04:31 Plt Count 27 K/uL (152-406) L* 10/23/20 04:31 PT 24.4 SECONDS (9.5-12.5) H 10/23/20 16:45 INR 2.11 10/23/20 16:45 APTT 46.5 SECONDS (24.3-36.9) H 10/20/20 05:20 Sodium 146 mmol/L (136-145) H 10/23/20 16:45 Potassium 3.2 mmol/L (3.5-5.1) L 10/23/20 16:45 BUN 124 mg/dL (7-18) H 10/23/20 16:45 Creatinine 3.03 mg/dL (0.55-1.3) H 10/23/20 16:45 Glucose 116 mg/dL (74-106) H 10/23/20 16:45 Phosphorus 7.4 mg/dL (2.5-4.9) H 10/23/20 04:31 Magnesium 1.9 mg/dL (1.8-2.4) 10/23/20 04:31 Total Bilirubin 1.5 mg/dL (0.2-1.0) H 10/23/20 04:31 AST 140 U/L (15-37) H D 10/23/20 04:31 ALT 251 U/L (12-78) H 10/23/20 04:31 Alkaline Phosphatase 157 U/L (45-117) H 10/23/20 04:31 Home Medications: Albuterol Inhaler [Ventolin Inhaler*] 3 ml IH Q4H 10/19/20 Ensure Enlive 237 ml PO TID 10/19/20 Fluconazole [Diflucan] 200 mg PO DAILY 10/19/20 Ipratropium/Albuterol Sulfate [Iprat-Albut 0.5-3(2.5) mg/3 ml] 3 ml IH Q4HR 10/19/20 Iron/FA/Vit B-Com W/C [Hemocyte Plus] 1 tab PO BID 10/19/20 Lactulose 20 gm PO BID 10/19/20 Meropenem [Merrem] 500 mg IV Q8HR 10/19/20 Metoprolol Tartrate [Lopressor] 25 mg PO BID 10/19/20 Midodrine HCl 2.5 mg PO TID 10/19/20 Multivitamin 1 each PO DAILY 10/19/20 Pantoprazole Granules [Protonix Packet (for suspension)] 40 mg PO DAILY 10/19/20 Tamsulosin HCl [Flomax] 1 tab PO DAILY 10/19/20 Thiamine HCl 100 mg PO DAILY 10/19/20 predniSONE [Prednisone] 20 mg PO DAILY 10/19/20 Followup: NONE,NONE [Primary Care Provider] -
[2020-10-24] MEDS ORDERED: LIDOCAINE 4% PATCH TOP SCH (09:00)
[2020-10-24] MEDS ORDERED: FOLIC ACID 1 MG in NA CHLORIDE 0.9% 50 ML IV SCH (09:00)
[2020-10-24] MEDS ORDERED: PANTOPRAZOLE 40 MG INJ IVP SCH (09:00)
[2020-10-24] MEDS ORDERED: FOLIC ACID 5 MG/ML VIAL IVP SCH (09:00)
== END 2020-10-23 21:57 | disposition hospice, inpatient (51) | DRG 871 ==
LOC: ER 11:48 → ERHOLD 16:15 → 2ND 10-22 20:24
PROVIDERS: ADMIT Hospitalist; ATTEND Hospitalist
DX: A41.9 Sepsis, unspecified organism (principal); R65.21 Severe sepsis with septic shock; N17.0 Acute kidney failure with tubular necrosis; J96.00 Acute respiratory failure, unspecified whether with hypoxia or hypercapnia; G93.41 Metabolic encephalopathy; E43 Unspecified severe protein-calorie malnutrition; J90 Pleural effusion, not elsewhere classified; R18.8 Other ascites; N18.4 Chronic kidney disease, stage 4 (severe); M48.54XA Collapsed vertebra, not elsewhere classified, thoracic region, initial encounter for fracture; L89.011 Pressure ulcer of right elbow, stage 1; L89.621 Pressure ulcer of left heel, stage 1; L89.101 Pressure ulcer of unspecified part of back, stage 1; Z68.25 Body mass index [BMI] 25.0-25.9, adult; Z66 Do not resuscitate; K74.60 Unspecified cirrhosis of liver; D63.8 Anemia in other chronic diseases classified elsewhere; D69.6 Thrombocytopenia, unspecified; R13.10 Dysphagia, unspecified; B19.20 Unspecified viral hepatitis C without hepatic coma; Z20.822 Contact with and (suspected) exposure to COVID-19
CPT/HCPCS: 36415; 70450; 71045; 71250; 72125; 74230; 76700; 80048; 80053; 80076; 80202; 81003; 81015; 82105; 82140; 82570; 82805; 83010; 83605; 83615; 83735; 83880; 84100; 84145; 84156; 84484; 85025; 85610; 85730; 86850; 86900; 86901; 87040; 87070; 87086; 87088; 87205; 92610; 92611; 93005; 93306; 94002; 94003; 96361; 96365; 96372; 96375; 99291; 99292; J0610; J0692; J1720; J1940; J2250; J2405; J2997; J3010; J3370; J3411; J3430; J7030; J7040; J7050; J7060; P9047; U0003

== ENCOUNTER 2020-10-23 22:48 | Inpatient (IN) | payer BC, OTHER ==
--- OUTSIDE RECORDS SUMMARY | 2020-10-23 22:54 | XMS REPORT | Continuity of Care Document ---
:1955 Author Organization [facility] t Address [address] [place] [address] Care Team Providers Name Role Phone DR [...] ID 2020-09-28 2020-10-11 Inpatient C [facility] TELE 1001 [id number] [facility] 18:08:00 19:01:00 [facility] Results Test Description Test Time Test Comments Results Result Comments Source STOOL CULTURE (GI) 2020-10-12 08:41:00 Test Item Value Reference Range Interpretation Comme nts Culture Observations (test code = COB1) NO NORMAL ENTERIC DANIEL Isolate 1 (test code = ISO1) Bella albicans A XR CHEST 1 VIEW PORTABLE *WW*2020-10-11 18:18:09 [facility] 1955 Sex: MExam: AP [...] normal/abnormal . GFR 57 See_Comment L [Automated MONEGASQUE (test mL/min/1.73m\S\2 message] The code = GFRAA) [...] this result as normal/abnormal . CLOSTRIDIUM DIFFICILE [id number] 11:44:00 Test Item Value Reference Range Interpretation [...] normal/abnormal . GFR 53 See_Comment L [Automated MONEGASQUE (test mL/min/1.73m\S\2 message] The code = GFRAA) [...] normal/abnormal . GFR 50 See_Comment L [Automated MONEGASQUE (test mL/min/1.73m\S\2 message] The code = GFRAA) [...] interpret this result as normal/abnormal . OCCULT [id number] 17:33:00 Test Item Value Reference Range Interpretation Comments Direct Exam (test code NEGATIVE FOR OCCULT = DE3) BLOOD BODY FLUID & GRAM STAIN [id number] 09:52:00 Test Item Value Reference Range Interpretation [...] normal/abnormal . GFR 45 See_Comment L [Automated MONEGASQUE (test mL/min/1.73m\S\2 message] The code = GFRAA) [...] normal/abnormal . GFR 42 See_Comment L [Automated MONEGASQUE (test mL/min/1.73m\S\2 message] The code = GFRAA) [...] normal/abnormal . GFR 42 See_Comment L [Automated MONEGASQUE (test mL/min/1.73m\S\2 message] The code = GFRAA) system which generated this result transmit klaeb reference range : >=90. The reference range [...] normal/abnormal . GFR 38 See_Comment L [Automated MONEGASQUE (test mL/min/1.73m\S\2 message] The code = GFRAA) [...] interpret this result as normal/abnormal . BLOOD [id number] 10:02:00 Test Item Value Reference Range Interpretation Comments Culture Observations (test NO GROWTH AFTER 5 code = COB1) DAYS BLOOD [id number] 10:02:00 Test Item Value Reference Range Interpretation [...] normal/abnormal . GFR 33 See_Comment L [Automated MONEGASQUE (test mL/min/1.73m\S\2 message] The code = GFRAA) [...] interpret this result as normal/abnormal . IRON/TIBC/IRON [id number] 22:54:00 Test Item Value Reference Range Interpretation [...] REFRENCE RANGE AVAILABLE FOR RANDOM SPECIMEN* GRAM [id number] 15:04:00 Test Item Value Reference Range Interpretation [...] LYMPHOCYTES <18% NEUTROPHILS <7% U/S GUIDANCE FOR [id number] 14:19:48 [facility] 1955 Sex: MEXAMINATION: IMAGE GUIDED THORACENTESIS HISTORY: Ascites, abdominal distention, pleural effusion, RAMIRO, sepsis, request is made for patient's first thoracentesis.COMPARISON: None.SEDATION: The patient did not require conscious sedation for the procedure.TECHNIQUE: The risks, benefits and alternatives werediscussed and informed consent was obtained. Prior to beginning the procedure, [place] Protocol was performed to confirm the patient's identity and the planned procedure. Maximum sterile barriers including cap, mask, hand hygiene, sterile gloves, sterile gown, large sterile drape and cutaneous antisepsis were used. The patient's right chest was examined with US and free flowing pleural fluid was identified. The skin overlying this area was anesthetized with 1% lidocaine. Using real-time US guidance a 5 [place] sheathed needle was advanced into the pleural [...] [place] 10/03/2020 2:19 PM CDT /S GUIDANCE [id number] 14:08:05 [facility] : 1955 Sex: MEXAMINATION: IMAGE GUIDED PARACENTESIS.HISTORY: Ascites, abdominal distention, pleural effusion, RAMIRO, sepsis, request is made for patient's first paracentesis.COMPARISON: None.SEDATION: The patient did not require conscious sedation for the procedure.TECHNIQUE: The risks, benefits and alternatives were discussed and informed consent was obtained. Prior to beginning the procedure, [place] Protocol was performed to confirm the identity [...] PM CDT INSERT PICC W/IMAGING 5YRS & [id number] 13:58:31 [facility] : 1955 Sex: MEXAMINATION: NONTUNNELED CENTRAL VENOUS CATHETER PLACEMENT USING ULTRASOUND AND FLUOROSCOPIC GUIDANCE.HISTORY: Poor venous access, ascites, abdominal distention, pleural effusion, request is made for PICC.COMPARISON: None.SEDATION: The patient did not require conscious sedation for the procedure.RADIATION DOSE: 0.05989 mGy.TECHNIQUE: The risks, benefits and alternatives were discussed and informed consent was obtained. Prior to beginning the procedure, [place] Protocol was used to confirm the patient's [...] 10/03/2020 1:58 PM CDT CHEST 1 VIEW [id number] 13:53:10 [facility] : 1955 Sex: MEXAMINATION: XR [...] normal/abnormal . GFR 25 See_Comment L [Automated MONEGASQUE (test mL/min/1.73m\S\2 message] The code = GFRAA) [...] XR CHEST 1 VIEW PORTABLE *WW*2020-10-02 20:15:41 [facility] : 1955 Sex: MEXAM: Chest one view.Location: [id number]: Pleural effusion, ,COMPARISON: None available.FINDINGS: Lungvolumes are low. There are [id number] bilateral pleural effusions. Airspace opacities are present [...] TARG) 1+ NONE A BASIC METABOLIC PANEL *WW*2020-10-02 05:14:00 Test Item Value Reference Range Interpretation [...] normal/abnormal . GFR 23 See_Comment L [Automated MONEGASQUE (test mL/min/1.73m\S\2 message] The code = GFRAA) [...] normal/abnormal . GFR 19 See_Comment L [Automated MONEGASQUE (test mL/min/1.73m\S\2 message] The code = GFRAA) [...] normal/abnormal . GFR 18 See_Comment L [Automated MONEGASQUE (test mL/min/1.73m\S\2 message] The code = GFRAA) [...] normal/abnormal . GFR 16 See_Comment L [Automated MONEGASQUE (test mL/min/1.73m\S\2 message] The code = GFRAA) [...] L = 09D) U/S KIDNEY (RENAL)*WW*2020-09-30 08:50:18 [facility] : 1955 Sex: MRENAL SONOGRAMLOCATION CODE: [id number]: Acute renal failureTECHNIQUE: Static sonographic images are [...] 1+ NONE A OVA) BASIC METABOLIC PANEL 2020-09-29 20:58:00 Test Item Value Reference Range Interpretation [...] normal/abnormal . GFR 14 See_Comment L [Automated MONEGASQUE (test mL/min/1.73m\S\2 message] The code = GFRAA) [...] [Auto mated message] = BILII) The system A2B generated this result transmitted ref erence range: [...] IU/L See_Comment [Auto mated message] The system A2B generated this result transmitted ref erence range: <=42. Th e reference range was not used to interpr et this result as normal/abnormal . ALT (test code = 31A) 10 IU/L See_Comment [Auto mated message] The system A2B generated this result transmitted ref erence range: [...] normal/abnormal . GFR 14 See_Comment L [Automated MONEGASQUE (test mL/min/1.73m\S\2 message] The code = GFRAA) [...] 19 umol/L 11-32 CT HEAD W/O CONTRAST *WW*2020-09-29 03:02:43 [facility] : 1955 Sex: MEXAM: CT HEAD WITHOUT IV CONTRASTLOCATION: [id number] HISTORY/INDICATION: Injury of head TECHNIQUE: Helical CT [...] signed by: Jerome Guevara MD 09/29/2020 3:02 [facility]
[2020-10-23] MEDS ORDERED: ACETAMINOPHEN 650MG/RECT SUPP PR PRN (23:21)
[2020-10-23] MEDS ORDERED: LORazepam 2 MG/ML VIAL IV PRN (23:21)
[2020-10-23] MEDS ORDERED: BISACODYL 10 MG RECTAL SUPP PR PRN (23:21)
[2020-10-23] MEDS ORDERED: ONDANSETRON 4 MG/2 ML VIAL IV PRN (23:21)
[2020-10-23] MEDS: MORPHINE 2 MG/ML SYR IV PRN (23:42)
[2020-10-24 02:00] VITALS: BMI 25.1
[2020-10-24] MEDS ORDERED: TRAMADOL HCL 50 MG TAB PO PRN (02:11)
[2020-10-24] MEDS ORDERED: HYDROCODONE/APAP 7.5/325 MG TAB PO PRN (02:11)
[2020-10-24] MEDS ORDERED: SODIUM CHLORIDE 0.9% 10ML INJ IV PRN (02:39)
[2020-10-24] MEDS: NACHLORIDE 0.45% 1,000 ML with NA BICARB 8.4% 50 MEQ IV SCH ×4 (03:00→05:25)
[2020-10-24] MEDS ORDERED: VANCOMYCIN 1.5 GM in NA CHLORIDE 0.9% 500 ML IVPB SCH (03:00)
[2020-10-24] MEDS: MORPHINE 2 MG/ML SYR IV PRN ×3 (05:19→14:19)
[2020-10-24] MEDS ORDERED: NACHLORIDE 0.45% 1,000 ML with NA BICARB 8.4% 50 MEQ IV SCH ×2 (08:00)
[2020-10-24] MEDS ORDERED: LIDOCAINE 4% PATCH TOP SCH (09:00)
[2020-10-24] MEDS ORDERED: MIDODRINE HCL 5 MG TABLET PO SCH (09:00)
[2020-10-24] MEDS ORDERED: THIAMINE 200 MG/2 ML INJ IVP SCH (09:00)
[2020-10-24] MEDS ORDERED: Levofloxacin 250mg IV 250 MG/50 ML BAG IV SCH (09:00)
[2020-10-24] MEDS ORDERED: FOLIC ACID 1 MG in NA CHLORIDE 0.9% 50 ML IV SCH (09:00)
[2020-10-24] MEDS ORDERED: PANTOPRAZOLE 40 MG INJ IVP SCH (09:00)
[2020-10-24] MEDS ORDERED: FUROSEMIDE 40 MG/4 ML VIAL IV SCH (09:00)
[2020-10-24] MEDS: MORPHINE 2 MG/ML SYR IV SCH ×2 (16:43→21:55)
[2020-10-25] MEDS: MORPHINE 2 MG/ML SYR IV SCH ×6 (01:12→21:52)
[2020-10-26] MEDS: MORPHINE 2 MG/ML SYR IV SCH ×6 (03:51→21:21)
[2020-10-26] MEDS ORDERED: SCOPOLAMINE HYDROBROMIDE PATCH TD SCH (09:00)
[2020-10-27] MEDS: MORPHINE 2 MG/ML SYR IV SCH ×6 (01:44→20:25)
[2020-10-27 03:43] VITALS: O2SAT 88
[2020-10-28] MEDS: MORPHINE 2 MG/ML SYR IV SCH ×6 (00:50→21:53)
[2020-10-28 22:26] VITALS: BP 45/29; TEMP 98
== END 2020-10-28 22:53 | disposition expired | DRG 951 ==
LOC: 2ND 22:48
PROVIDERS: ADMIT Internal Medicine Medical Oncology; ATTEND Internal Medicine Medical Oncology
DX: Z51.5 Encounter for palliative care (principal)
CPT/HCPCS: J2270; J3370; J7040